=== PATIENT | male | born 1995 | race Caucasian/White ===

== ENCOUNTER 2018-06-02 15:24 | Emergency (ER) | payer OTHER, SELFPAY ==
[2018-06-02 15:29] VITALS: BP 139/89; PULSE 88; RESP 20; TEMP 36.6; O2SAT 95
--- NOTE | 2018-06-02 15:33 | W.ED.GENAD ---
Discharge Plan Disposition Patient Disposition: HOME Condition: Fair Discharge Details Chief Complaint: Anxiety Clinical Impression: Finger laceration Primary Care Provider: None,None ED Provider: Ivet Linton Home Meds and New Rx's Prescriptions: No Action No Known Home Meds RF: 0 Discharge Instructions Instructions: Finger Laceration (ED) Additional Instructions: Keep wound clean, dry, covered. Please continue with the foam and metal splint until stitches are removed next week. Return to the emergency department in 7 days for suture removal. Please monitor for signs of infection including redness, warmth, drainage, increased pain, fever/chills. If these arise please seek care urgently once again. Keep current dressing on for the next 24 hours, please cover with Band-Aid and foam and metal after this. Discharge Data Discharge Date/Time-TO BE ENTERED AT DEPARTURE: 06/02/18 17:37 Medical Decision Making Patient 22-year-old [id number] male presenting today with chief complaint of left index finger laceration. 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 Suffered a irregularly-shaped 1.5 cm laceration on the dorsal side over the PIP joint of the left index. Sensation is intact. Two-point is intact. Ligamentously intact on exam. Status is not up-to-date on tetanus, will update this today. Patient and I discussed the risk/benefits of closure as well as closure options. We discussed versus benefits of suture and expected procedural steps. He voices understanding and wishes to proceed peer Procedure note: Using standard sterile technique, a digital block was performed using 1% lidocaine plain. 4 cc was infiltrated. Patient tolerated this well. This is not sufficiently anesthetized the area. Another 3 cc of 1% lidocaine plain was infiltrated into the wound. This for quite well and tolerated patient tolerated this well. The wound was then copiously irrigated with chlorhexidine and sterile saline. Explored to base in a bloodless field using tourniquet. No foreign body or debris was noted. Unable to visualize tendon. Attention was then turned to closure. #6 simple interrupted stitches were placed using 5-0 nylon. Patient tolerated this well. A bulky sterile dressing was then applied which immobilized the PIP joint. Patient I discussed wound care in depth. He was given a foam metal splint to immobilize the area as this is directly over the DIP joint. We discussed signs and symptoms of infection and when to seek care urgently once again. I advised he return in 10 days for suture removal. Discussed wound care. All of his questions and concerns were addressed, he is in agreement with this plan. HPI General Mode of arrival: ambulatory. Date/Time Provider Initiated Documentation: 06/02/18 15:33. Limitations to Documentation: no limitations. Information obtained by: patient and RN notes reviewed. History of Present Illness 22 year old M presents to the emergency department with the chief complaint of left index finger laceration, described as mild, with intensity rated at 1. Quality is described as aching, and is localized to the left and upper extremity. Patient reports no radiation. Patient started experiencing this minute(s) and it has been constant. No relieving factors improve symptom(s), Movement worsens symptoms . Patient notes no other symptoms.. Patient did receive the following treatments prior to arrival, none Related Data Home Medications Medication Instructions Recorded Confirmed Unknown [No Known Home Meds] 04/25/15 06/02/18 Allergies Allergy/AdvReac Type Severity Reaction Status Date / Time No Known Allergies Allergy Unverified 06/02/18 15:32 General Stated Complaint: Laceration MCKENZIE: 3 Review of Systems Constitutional Reports as per HPI, Denies chills and Denies fever(s) Musculoskeletal Reports as per HPI Integumentary/Breasts Reports as per HPI Neurologic Reports as per HPI, Denies sensory deficit and Denies paresthesias [facility] Medical History Angina pectoris (Chronic) Anxiety (Chronic) Pulmonary embolism (Chronic) Surgical History History of coronary artery stent placement (Chronic) Social History Smoking/Tobacco Use Status: Current every day Tobacco Type: cigarettes Smoking cigarettes per day: 10 Alcohol Intake: current Alcohol Intake frequency: a few times a month Drug use: Never Substance use type: does not use Do you feel safe at home: Yes Do you feel safe in your relationship?: Yes Exam Const General: cooperative, healthy appearing, comfortable, no acute distress and well developed Nutritional Appearance: average body habitus and well nourished Orientation: alert and awake Resp Effort & Inspection: normal respiratory effort, able to speak in complete sentences and no respiratory distress Cardio Rate: regular rate Rhythm: regular rhythm Skin Trauma: laceration (dorsal PIP joint left index finger) Neuro General: alert and awake Cognition: normal cognition Speech: speech normal Gait: normal gait Sensory Exam: no sensory deficits noted (2 point intact on affect digit) Extrem Left upper extremity: full ROM and normal capillary refill; abnormal to inspection (laceration as above. Ligamentous intact) Psych Appearance: grossly normal and well kempt Mental Status: mental status grossly normal Speech and Movement: speech and movement normal Course Vital Signs Temperature 36.6 C 06/02/18 15:29 Pulse 88 06/02/18 15:29 Respiratory Rate 20 06/02/18 15:29 Blood Pressure 139/89 06/02/18 15:29 Pulse Oximetry 95 06/02/18 15:29 Temperature 36.6 C 06/02/18 15:29 Temperature Source Temporal Artery Scan 06/02/18 15:29 Pulse 88 06/02/18 15:29 Respiratory Rate 20 06/02/18 15:29 Respiratory Effort Non-Labored 06/02/18 15:29 Blood Pressure 139/89 06/02/18 15:29 Pulse Oximetry 95 06/02/18 15:29 Pain Level 0 06/02/18 15:29
--- NOTE | 2018-06-02 16:30 | ED.GENADUL_ITS ---
Discharge Plan Disposition Patient Disposition: HOME Condition: Fair Discharge Details Chief Complaint: Anxiety Clinical Impression: Finger laceration Primary Care Provider: None,None ED Provider: Ivet Linton Home Meds and New Rx's Prescriptions: No Action No Known Home Meds RF: 0 Discharge Instructions Instructions: Finger Laceration (ED) Additional Instructions: Keep wound clean, dry, covered. Please continue with the foam and metal splint until stitches are removed next week. Return to the emergency department in 7 days for suture removal. Please monitor for signs of infection including redness, warmth, drainage, increased pain, fever/chills. If these arise please seek care urgently once again. Keep current dressing on for the next 24 hours, please cover with Band-Aid and foam and metal after this. Discharge Data Discharge Date/Time-TO BE ENTERED AT DEPARTURE: 06/02/18 17:37 Medical Decision Making Patient 22-year-old [id number] male presenting today with chief complaint of left index finger laceration. 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 Suffered a irregularly-shaped 1.5 cm laceration on the dorsal side over the PIP joint of the left index. Sensation is intact. Two-point is intact. Ligamentously intact on exam. Status is not up-to-date on tetanus, will update this today. Patient and I discussed the risk/benefits of closure as well as closure options. We discussed versus benefits of suture and expected procedural steps. He voices understanding and wishes to proceed peer Procedure note: Using standard sterile technique, a digital block was performed using 1% lidocaine plain. 4 cc was infiltrated. Patient tolerated this well. This is not sufficiently anesthetized the area. Another 3 cc of 1% lidocaine plain was infiltrated into the wound. This for quite well and tolerated patient tolerated this well. The wound was then copiously irrigated with chlorhexidine and sterile saline. Explored to base in a bloodless field using tourniquet. No foreign body or debris was noted. Unable to visualize tendon. Attention was then turned to closure. #6 simple interrupted stitches were placed using 5-0 nylon. Patient tolerated this well. A bulky sterile dressing was then applied which immobilized the PIP joint. Patient I discussed wound care in depth. He was given a foam metal splint to immobilize the area as this is directly over the DIP joint. We discussed signs and symptoms of infection and when to seek care urgently once again. I advised he return in 10 days for suture removal. Discussed wound care. All of his questions and concerns were addressed, he is in agreement with this plan. HPI General Mode of arrival: ambulatory . Date/Time Provider Initiated Documentation: 06/02/18 15:33 . Limitations to Documentation: no limitations . Information obtained by: patient and RN notes reviewed . History of Present Illness 22 year old M presents to the emergency department with the chief complaint of left index finger laceration, described as mild, with intensity rated at 1. Quality is described as aching, and is localized to the left and upper extremity. Patient reports no radiation. Patient started experiencing this minute(s) and it has been constant. No relieving factors improve symptom(s), Movement worsens symptoms . Patient notes no other symptoms.. Patient did receive the following treatments prior to arrival, none Related Data Home Medications Medication Instructions Recorded Confirmed Unknown [No Known Home Meds] 04/25/15 06/02/18 Allergies Allergy/AdvReac Type Severity Reaction Status Date / Time No Known Allergies Allergy Unverified 06/02/18 15:32 General Stated Complaint: Laceration MCKENZIE: 3 Review of Systems Constitutional Reports as per HPI, Denies chills and Denies fever(s) Musculoskeletal Reports as per HPI Integumentary/Breasts Reports as per HPI Neurologic Reports as per HPI, Denies sensory deficit and Denies paresthesias [facility] Medical History Angina pectoris (Chronic) Anxiety (Chronic) Pulmonary embolism (Chronic) Surgical History History of coronary artery stent placement (Chronic) Social History Smoking/Tobacco Use Status: Current every day Tobacco Type: cigarettes Smoking cigarettes per day: 10 Alcohol Intake: current Alcohol Intake frequency: a few times a month Drug use: Never Substance use type: does not use Do you feel safe at home: Yes Do you feel safe in your relationship?: Yes Exam Const General: cooperative, healthy appearing, comfortable, no acute distress and well developed Nutritional Appearance: average body habitus and well nourished Orientation: alert and awake Resp Effort & Inspection: normal respiratory effort, able to speak in complete sentences and no respiratory distress Cardio Rate: regular rate Rhythm: regular rhythm Skin Trauma: laceration (dorsal PIP joint left index finger) Neuro General: alert and awake Cognition: normal cognition Speech: speech normal Gait: normal gait Sensory Exam: no sensory deficits noted (2 point intact on affect digit) Extrem Left upper extremity: full ROM and normal capillary refill; abnormal to inspection (laceration as above. Ligamentous intact) Psych Appearance: grossly normal and well kempt Mental Status: mental status grossly normal Speech and Movement: speech and movement normal Course Vital Signs Temperature 36.6 C 06/02/18 15:29 Pulse 88 06/02/18 15:29 Respiratory Rate 20 06/02/18 15:29 Blood Pressure 139/89 06/02/18 15:29 Pulse Oximetry 95 06/02/18 15:29 Temperature 36.6 C 06/02/18 15:29 Temperature Source Temporal Artery Scan 06/02/18 15:29 Pulse 88 06/02/18 15:29 Respiratory Rate 20 06/02/18 15:29 Respiratory Effort Non-Labored 06/02/18 15:29 Blood Pressure 139/89 06/02/18 15:29 Pulse Oximetry 95 06/02/18 15:29 Pain Level 0 06/02/18 15:29
[2018-06-02 17:36] VITALS: BP 139/89; PULSE 88; RESP 20; TEMP 36.6; O2SAT 95
[2018-06-02 19:55] VITALS: BP 149/78; PULSE 86; RESP 20; TEMP 36.9; O2SAT 97
== END 2018-06-02 17:37 | disposition home or self-care (01) ==
PROVIDERS: Emergency Provider Physician Assistant
DX: S61.211A Laceration without foreign body of left index finger without damage to nail, initial encounter (principal); W45.8XXA Other foreign body or object entering through skin, initial encounter
CPT/HCPCS: 12001

== ENCOUNTER 2018-06-09 06:27 | Emergency (ER) | payer SELFPAY ==
--- NOTE | 2018-06-09 06:38 | ED.GENADUL_ITS ---
Discharge Plan Disposition Patient Disposition: HOME Condition: Improving Discharge Details Chief Complaint: SutureRem Clinical Impression: Visit for suture removal Primary Care Provider: None,None ED Provider: Javid Ferrara Home Meds and New Rx's Prescriptions: No Action No Known Home Meds RF: 0 Medical Decision Making 22-year-old male presents from home for suture removal from laceration left index finger. Sutures removed by nursing staff. HPI General Mode of arrival: ambulatory . Date/Time Provider Initiated Documentation: 06/09/18 06:36 . Limitations to Documentation: no limitations . Information obtained by: patient . History of Present Illness 22 year old M presents to the emergency department with the chief complaint of Presents for suture removal, no complaints, wound healing well, and is localized to the left and upper extremity. Patient started experiencing this day(s) Patient notes no other symptoms.. Patient did receive the following treatments prior to arrival, none Related Data Home Medications Medication Instructions Recorded Confirmed Unknown [No Known Home Meds] 04/25/15 06/09/18 Allergies Allergy/AdvReac Type Severity Reaction Status Date / Time No Known Allergies Allergy Unverified 06/09/18 06:31 General Stated Complaint: SutureRem MCKENZIE: 5 PFSH Medical History Angina pectoris (Chronic) Anxiety (Chronic) Pulmonary embolism (Chronic) Surgical History History of coronary artery stent placement (Chronic) Social History Smoking/Tobacco Use Status: Current every day Tobacco Type: cigarettes Alcohol Intake: current Alcohol Intake frequency: a few times a month Drug use: Never Substance use type: does not use Do you feel safe at home: Yes Do you feel safe in your relationship?: Yes Exam Narrative Exam Narrative: GEN: awake, alert, oriented 3. Pleasant, well groomed, interactive. HEAD: Normocephalic, atraumatic ENT: Mucous membranes moist, oropharynx unremarkable, External ear exam unremarkable EYES: PERRL, EOMI EXT: Full ROM, no edema, no rash. Healing laceration left index finger, no erythema, discharge, swelling or tenderness Neuro: Grossly normal neurologic exam, conversant, interactive. Psych: Speech fluent, thoughts congruent, affect normal Course Respiratory Effort Non-Labored 06/09/18 06:31
== END 2018-06-09 06:44 | disposition home or self-care (01) ==
LOC: ER 06:41
PROVIDERS: Emergency Provider Emergency Medicine
DX: S61.211D Laceration without foreign body of left index finger without damage to nail, subsequent encounter (principal); X58.XXXD Exposure to other specified factors, subsequent encounter; Z48.02 Encounter for removal of sutures

== ENCOUNTER 2022-10-31 17:29 | Outpatient (REF) | payer MEDICAID, SELFPAY ==
[2022-10-31 16:20] LABS: ALT 67 U/L (16-63); AST 23 U/L (15-37); Albumin 4.7 g/dL (3.4-5.0); Alkaline Phosphatase 109 U/L (46-116); Anion Gap 9.3 mmol/L (3-11); BUN 16 mg/dL (7-18); Bilirubin, Total 0.7 mg/dL (0.2-1.0); CO2 27.7 mmol/L (21.0-32.0); Calculated LDL 133 mg/dL (<100); Chloride 101 mmol/L (98-107); Cholesterol 207 mg/dL (<200); Estimated GFR 104.48 (mL/min/1.73m2); Glucose 96 mg/dL (74-106); HDL Cholesterol 44 mg/dL (40-60); Potassium 4.5 mmol/L (3.5-5.1); Sodium 138 mmol/L (136-145); TSH (W/Ref FT4) 1.92 uIU/mL (0.36-3.74); Total Protein 8.3 g/dL (6.4-8.2); Triglyceride 153 mg/dL (<150)
== END 2022-10-31 17:30 | disposition home or self-care (01) ==
LOC: NCHCN 17:29
PROVIDERS: Visit Provider Family Medicine
DX: Z13.29 Encounter for screening for other suspected endocrine disorder (principal); Z13.228 Encounter for screening for other metabolic disorders; Z13.220 Encounter for screening for lipoid disorders; Z00.00 Encounter for general adult medical examination without abnormal findings
CPT/HCPCS: 80053; 80061; 84443

== ENCOUNTER 2023-06-23 16:02 | Emergency (ER) | payer SELFPAY ==
[2023-06-23 16:03] VITALS: BP 165/101; PULSE 83; RESP 18; TEMP 36.4; O2SAT 99
--- NOTE | 2023-06-23 16:17 | ED.GENADUL_ITS ---
Discharge Plan Disposition Patient Disposition: Home Condition: Stable Discharge Details Chief Complaint: Laceration Clinical Impression: Laceration of hand, left Primary Care Provider: Unknown,Unknown ED Provider: Ab Reis Home Meds and New Rx's Prescriptions: No Action No Known Home Meds Discharge Instructions Instructions: Laceration (ED) Additional Instructions: Return in 7 to 10 days for evaluation for suture removal Return sooner if signs of infection develop such as spreading redness from the wound or yellow-white discharge from the wound. HPI General Mode of arrival: ambulatory . Date/Time Provider Initiated Documentation: 06/23/23 16:07 . Limitations to Documentation: no limitations . Information obtained by: patient . History of Present Illness 28 year old M presents to the emergency department with the chief complaint of left hand laceration, described as moderate, Quality is described as aching, Patient started experiencing this hour(s) (1) and it has been constant. No relieving factors improve symptom(s), No exacerbating factors reported . Patient notes no other symptoms.. Related Data Home Medications Medication Instructions Recorded Confirmed Unknown [No Known Home Meds] 04/25/15 06/23/23 Allergies Allergy/AdvReac Type Severity Reaction Status Date / Time No Known Allergies Allergy Unverified 06/23/23 16:06 General Stated Complaint: Laceration MCKENZIE: 4 Review of Systems All systems reviewed & are unremarkable except as noted in HPI and below Constitutional Constitutional: Denies chills, Denies fever(s) and Denies weakness Cardiovascular Cardiovascular: Denies chest pain and Denies dyspnea Respiratory Respiratory: Denies cough and Denies dyspnea Gastrointestinal Gastrointestinal: Denies abdominal pain, Denies nausea and Denies vomiting Musculoskeletal Musculoskeletal: Denies joint swelling Neurologic Neurologic: Denies weakness Exam Const General: no acute distress Orientation: alert [facility] Head: normal to inspection Ears: external ears normal General nose exam: external nose normal Mouth: moist mucous membranes Eyes General: appearance normal, both eyes and all related structures Neck Neck: normal visual inspection Resp Effort & Inspection: normal respiratory effort and able to speak in complete sentences Cardio Rate: regular rate Skin General skin exam: no rashes or lesions noted Neuro General: patient alert and patient oriented x3 Extrem General: full ROM and capillary refill normal Psych Mental Status: mental status grossly normal Course Vital Signs Vital signs: Vital Signs Temperature 36.4 C L 06/23/23 16:03 Pulse 83 06/23/23 16:03 Respiratory Rate 18 06/23/23 16:03 Blood Pressure 165/101 H 06/23/23 16:03 Pulse Oximetry 99 06/23/23 16:03 Temperature 36.4 C L 06/23/23 16:03 Temperature Source Skin 06/23/23 16:03 Pulse 83 06/23/23 16:03 Respiratory Rate 18 06/23/23 16:03 Respiratory Effort Normal 06/23/23 16:16 Blood Pressure 165/101 H 06/23/23 16:03 Pulse Oximetry 99 06/23/23 16:03 Oxygen Delivery Method Room Air 06/23/23 16:03 Oxygen Flow Rate 0 06/23/23 16:03 Pain Level 6 06/23/23 16:03 Procedures Laceration Laceration 1: Site: hand Side (If applicable): left Size (cm): 4 Description: linear Depth: simple, single layer Local Anesthetic: Lidocaine 1% and with Epi Amount of anesthesia used (mL): 7 Pre-repair: wound explored and irrigated extensively Skin layer closed with: nylon Size (cm): 4-0 Number of sutures: 5 Technique: simple, interrupted Medical Decision Making 1-year-old male who denies any significant chronic medical problems comes in with a left hand laceration. He says he was working with a razor when it slipped and cut his posterior left hand, did not fall or sustain other injuries. He has a 4 cm laceration on the posterior left hand just proximal to the MCP joints of the index and middle finger and runs horizontal. He has intact sensation, intact to point discrimination, normal capillary refill, full range of motion with extension and flexion at all joints of the fingers. No findings on exam to suggest neurovascular or tendon injury. Will place topical lidocaine and update tetanus and closed with sutures. After copious irrigation wound was closed with five 4-0 sutures without complication, patient is stable for discharge advised to come back in 7 to 10 days for suture removal and sooner if signs of infection develop Differential Diagnosis Differential Diagnosis: Laceration, abrasion Quality:SDOH Health Related Social Needs: No Data to Display PFSH All Active Problems (Updated 06/23/23 @ 16:45 by Ab Reis MD) Laceration of hand, left (Acute) Medical History (Updated 06/23/23 @ 16:45 by Ab Reis MD) Pulmonary embolism Angina pectoris Anxiety Surgical History History of coronary artery stent placement Social History Smoking/Tobacco Use Status: Current every day Tobacco Type: cigarettes Smoking risk assessment performed?: Yes Alcohol Intake: current Alcohol Intake frequency: a few times a month Drug use: Never Substance use type: does not use Housing: house Do you feel safe at home: Yes Do you feel safe in your relationship?: Yes
[2023-06-23] MEDS: Tetanus & Diphtheria Tox,ADULT 0.5 ML VIAL IM (16:22)
== END 2023-06-23 17:00 | disposition home or self-care (01) ==
PROVIDERS: Emergency Provider Emergency Medicine
DX: S61.412A Laceration without foreign body of left hand, initial encounter (principal); I25.119 Atherosclerotic heart disease of native coronary artery with unspecified angina pectoris; Z86.711 Personal history of pulmonary embolism; Z95.5 Presence of coronary angioplasty implant and graft; F17.210 Nicotine dependence, cigarettes, uncomplicated; Z23 Encounter for immunization; W45.8XXA Other foreign body or object entering through skin, initial encounter
CPT/HCPCS: 12002; 90471; 90714; 99283

== ENCOUNTER 2023-07-01 18:56 | Emergency (ER) | payer BC, SELFPAY ==
[2023-07-01 18:58] VITALS: BP 149/80; PULSE 90; RESP 15; TEMP 36.9; O2SAT 98
--- NOTE | 2023-07-01 19:04 | W.ED.GENAD ---
Discharge Plan Disposition Patient Disposition: Home Condition: Stable Discharge Details Clinical Impression: Encounter for removal of sutures Primary Care Provider: None,None ED Provider: Ludmila Ramirez Home Meds and New Rx's Prescriptions: No Action No Known Home Meds Discharge Instructions Instructions: Stitches Removal (ED) Additional Instructions: Keep steri strips on there until they fall off on their own for the next few days. HPI General Mode of arrival: ambulatory. Date/Time Provider Initiated Documentation: 07/01/23 19:02. Limitations to Documentation: no limitations. Information obtained by: patient, RN notes reviewed and old records reviewed. HPI Narrative: 28-year-old male presents for suture removal to left hand. Patient had 5 simple interrupted sutures placed approximately 8 days ago after excellently cutting his hand with a razor. No signs of induration or infection noted patient has full range of motion noted to his hand. Related Data Home Medications Medication Instructions Recorded Confirmed Unknown [No Known Home Meds] 04/25/15 06/23/23 Allergies Allergy/AdvReac Type Severity Reaction Status Date / Time No Known Allergies Allergy Unverified 06/23/23 16:06 General Stated Complaint: Recheck MCKENZIE: 5 Review of Systems Integumentary/Breasts Skin/Breast: Reports as per HPI and Reports other (Sutured wound left hand) Exam Skin Wounds: wounds noted (Left hand sutured wound, well approximated, no surrounding signs of infecti) Course Vital Signs Vital signs: Vital Signs Temperature 36.9 C 07/01/23 18:58 Pulse 90 07/01/23 18:58 Respiratory Rate 15 07/01/23 18:58 Blood Pressure 149/80 H 07/01/23 18:58 Pulse Oximetry 98 07/01/23 18:58 Temperature 36.9 C 07/01/23 18:58 Temperature Source Tympanic 07/01/23 18:58 Pulse 90 07/01/23 18:58 Respiratory Rate 15 07/01/23 18:58 Respiratory Effort Normal 07/01/23 19:01 Blood Pressure 149/80 H 07/01/23 18:58 Blood Pressure Position Sitting 07/01/23 18:58 Pulse Oximetry 98 07/01/23 18:58 Oxygen Delivery Method Nasal Cannula 07/01/23 18:58 Medical Decision Making 28-year-old male presents for suture removal to left hand. Patient had 5 simple interrupted sutures placed approximately 8 days ago after excellently cutting his hand with a razor. No signs of induration or infection noted patient has full range of motion noted to his hand. Ordered sutures removed. staff development nurse at bedside for suture removal. Will place 2 steri strips on after removal for next few days to prevent dehiscence. This text was generated using [employer] system, please disregard any oddities of phrase or misspellings. Medical Records Medical records reviewed: Yes I reviewed the patient's medical records. Quality:SDOH Health Related Social Needs: No Data to Display PFSH All Active Problems Encounter for removal of sutures (Acute) Laceration of hand, left (Acute) Medical History Pulmonary embolism Angina pectoris Anxiety Surgical History History of coronary artery stent placement Social History Smoking/Tobacco Use Status: Current every day Tobacco Type: cigarettes Smoking risk assessment performed?: Yes Alcohol Intake: current Alcohol Intake frequency: a few times a month Drug use: Never Substance use type: does not use Housing: house Do you feel safe at home: Yes Do you feel safe in your relationship?: Yes PAWSS Have you Been Recently Intoxicated or Drunk Within the Last 30 days?: No Have you Ever Experienced Previous Episodes of Alcohol Withdrawal?: No Have you ever Experienced Withdrawal Seizures?: No Have you ever Experienced Delirium Tremens(DT)s?: No Have you ever undergone Alcohol Rehabilitation Treatment (i.e, inpt ot outpatient treatment programs)?: No Have you ever Experienced Blackouts?: No Have you ever Combined Alcohol with other Downers within the last 90 days?: No Have you ever Combined Alcohol with any other Substance of Abuse during the last 90 days?: No Positive Blood Alcohol level on Presentation? [PCS.BAL]: No Evidence of Increased Autonomic Activity (i.e. HR>120, tremor, sweating, agitation, nausea)?: No Result: 0
== END 2023-07-01 19:10 | disposition home or self-care (01) ==
PROVIDERS: Emergency Provider Registered Nurse Emergency
DX: Z48.02 Encounter for removal of sutures (principal)

== ENCOUNTER 2023-12-20 14:39 | Emergency (ER) | payer BC, SELFPAY ==
[2023-12-20] VITALS (21 sets, daily range): BP systolic 108–165; BP diastolic 58–120; PULSE 77–114; RESP 11–26; TEMP 36.4–36.9; O2SAT 96–99
--- NOTE | 2023-12-20 14:45 | DI.RAD_ITS ---
Exam(s) XR HIP LT COMPLETE AP PELVIS EXAM: XR HIP LT COMPLETE AP PELVIS CLINICAL HISTORY: Left pelvis injury. TECHNIQUE: 2D digital imaging was performed of the left hip. Three views were obtained. AP pelvis and lateral left hip views were obtained. COMPARISON: No exams were available for comparison FINDINGS: BONES: No acute fracture is present. No bony destructive lesion is seen. JOINTS: No dislocation present. SOFT TISSUE: Normal. IMPRESSION: Unremarkable radiographs of the left hip. Unremarkable radiographs of the pelvis DATA REPOSITORY: RADIATION DOSE DELIVERED:
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
--- OUTSIDE RECORDS SUMMARY | 2023-12-20 14:48 | XMS_ITS | Encounter Summary ---
Author Organization [facility] Address [address] [place] [address] Care Team Providers Care Thread Winder Name Role Phone Jose Ramon Prado MD Primary Care Provider Amelia loving Reason for Visit * Reason Onset Date Comments Appointment Related 01/22/2016 Encounter Details Date Type Department Care Team (Late st Contact Info) Description 01/22/2016 Telephone [facility] Neurosurgery - [facility] [address] [place], [place] [id number] Edu Moran, ALEXANDER Appointment Related Social History Tobacco Use Types Packs/Day Years Used Date Smoking Tobacco: Never Smokeless Tobacco: Former Chew Quit: 12/15/2015 Alcohol Use Standard Drinks/Week Comments Yes 14 (1 standard drink = 0.6 oz pu re alcohol) Sex and Gender Information Value Date Recorded Sex Assigned at Not on file Gender Identity Not on file Sexual Orientation Not on file documented as of this encounter Functional Status Functional Status Response Date of Assess ment Are you deaf or do you have serious difficulty h earing? No 12/16/2015 Are you blind or do you have serious difficulty seeing, even when wearing glasses? No 12/16/2015 Do you have serious difficul ty walking or climbing stairs? (5 years old or older) No 12/16/2015 Do you have difficulty dress ing or bathing? (5 years old or older) No 12/16/2015 Because of a physical, menta l, or emotional condition, does this person have difficulty doing errands alone such as visiting a doctor's office or shopping? Yes 01/11/2016 Cognitive Status Response Date of Assessm ent Because of a physical, menta l, or emotional condition, does this person have serious difficulty concentrating, remembering, or making decisions? Yes 01/11/2016 documented as of this encounter Miscellaneous Notes * Telephone Encounter - Edu Moran RN - 01/23/2016 0933 EST Left message for mother that message was recieved. Informed Sada Angulo, of mother's request of confidentiality and privacy regarding client. * Telephone Encounter - Ruth Gallo - 01/22/2016 1656 EST Mom, Silke, returned call on behalf of Silviano - she stated that we can speak to the CM (Sabi) butshe does not have their consent to sit in or be present at any of Silviano's appointments. * Telephone Encounter - Edu Moran RN - 01/22/2016 1131 EST Called client about upcoming appointment and CM who would like to sit in (Sabi). Left message for triage. documented in this encounter Plan of Treatment Not on file documented as of this encounter Visit Diagnoses Not on filedocumented in this encounter Care Teams Thread Winder Relationship Specialty Start Date End Date Jose Ramon Prado MD PCP - General 12/15/15 documented as of this encounter
--- OUTSIDE RECORDS SUMMARY | 2023-12-20 14:48 | XMS_ITS | Encounter Summary ---
Author Organization [facility] Address [address] [place] [address] Care Team Providers Care Commission Clerk Name Role Phone Jose Ramon Prado MD Primary Care Provider Amelia loving Reason for Referral * Radiology Services (Routine) - Specialty Report Received Specialty Diagnoses / Procedures Referred By Contac t Referred To Contact Diagnoses Closed skull fracture with cerebral contusion with routine healing, subsequent encounter Procedures CT HEAD WO CONTRAST Sada Benjamin PA-C [address] [place] [phone] Referral ID Status Reason Start Date Expiration Date V isits Requested Visits Authorized [id number] Specialty Report Received 06/09/2017 1 1 Encounter Details Date Type Department Care Team (Late st Contact Info) Description 06/05/2017 Orders Only [facility] Neurosurgery - [address] [id number] Sada Benjamin PA-C [address] [place] [phone] Closed skull fracture with cerebral contusion with routine healing, subsequent encounter (Primary Dx) Social History Tobacco Use Types Packs/Day Years [...] visiting a doctor's office or shopping? Yes 01/23/2016 Cognitive Status Response Date of Assessm ent Because of a physical, menta l, or emotional condition, does this person have serious difficulty concentrating, remembering, or making decisions? Yes 01/23/2016 documented as of this encounter Plan of Treatment Scheduled Orders Name Type Priority Associated Diagnoses Orde r Schedule CT HEAD WO CONTRAST Imaging Routine Closed Skull Fracture With Cerebral Contusion With Routine Healing, Subsequent Encounter Ordered: 06/09/2017 documented as of this encounter Visit Diagnoses Diagnosis Closed skull fracture with cerebral contusion with routine healing, subsequent encounter- Primary documented in this encounter Care Teams Commission Clerk Relationship Specialty Start Date End Date Jose Ramon Prado MD PCP - General 12/15/15 documented as of this encounter
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
--- OUTSIDE RECORDS SUMMARY | 2023-12-20 14:48 | XMS_ITS | Encounter Summary ---
Author Organization [facility] Address [address] [place] [address] Care Team Providers Care Printing Agent Name Role Phone Jose Ramon Prado MD Primary Care Provider Amelia loving Reason for Visit * Reason Onset Date Comments Appointment Related 06/30/2017 Encounter Details Date Type Department Care Team (Late st Contact Info) Description 06/30/2017 Telephone [facility] [address] [place], [place] [address] Sada Benjamin PA-C [address] [facility] [place] [phone] Appointment Related Social History Tobacco Use Types [...] visiting a doctor's office or shopping? Yes 06/26/2017 Cognitive Status Response Date of Assessm ent Because of a physical, menta l, or emotional condition, does this person have serious difficulty concentrating, remembering, or making decisions? Yes 06/26/2017 documented as of this encounter Miscellaneous Notes * Telephone Encounter - Ruth Manriquez - 06/30/2017 0953 EDT Confirmed for patient with the following appointment details: Date:07/01/2017 Arrival time:1:15 Appt time:1:30 Provider:KM Location:[facility] Advised patient to contact our office with any questions. The phone number and directions to the clinic were provided. documented in this encounter Plan of Treatment Not on file documented as of this encounter Visit Diagnoses Not on filedocumented in this encounter Care Teams Printing Agent Relationship Specialty Start Date End Date Jose Ramon Prado MD PCP - General 12/15/15 documented as of this encounter
--- OUTSIDE RECORDS SUMMARY | 2023-12-20 14:48 | XMS_ITS | Encounter Summary ---
Author Organization [facility] Address [address] [place] [address] Care Team Providers Care Senior Manufacturing Engineer Name Role Phone Jose Ramon Prado MD Primary Care Provider Amelia loving Reason for Referral * Radiology Services (Routine) - Closed Specialty Diagnoses / Procedures Referred By Contac t Referred To Contact Diagnoses Wrist fracture, left, with routine healing, subsequent encounter Procedures WRIST 2 VIEWS Logan Rogers PA-C [address] [place] [phone] Referral ID Status Reason Start Date Expiration Date Visits Re quested Visits Authorized [id number] Closed 08/22/2016 1 1 Encounter Details Date Type Department Care Team (Late st Contact Info) Description 08/21/2016 Orders Only [facility] Hand & Upper Extremity Program - [address] [place] [address] Logan Rogers PA-C [address] [place] [phone] Wrist fracture, left, with routine healing, subsequent encounter (Primary Dx) [...] as of this encounter Plan of Treatment Not on file documented as of this encounter Procedures Procedure Name Priority Date/Time Associated Diagnosis Comments WRIST 2 VIEWS Routine 08/22/2016 11:03 EDT Wrist fracture, left, with routine healing, subsequent encounter documented in this encounter Results * WRIST 2 VIEWS (08/22/2016 11:03 EDT) Anatomical Region Laterality Modality Other 08/22/2016 11:0 3 EDT 08/22/2016 12:00 EDT Narrative 08/22/2016 12:00 EDT WRIST 2 VIEWS 08/22/2016 11:03 AM Clinical History/Comments: 21 years Male S62.102D-Fracture of unspecified carpal bone, left wrist, subsequent encounter for fracture with routine [id number]; Distal Radius FX Comparison: 1. ??02/21/2016 Technique: 1. ??2 views right wrist: PA and lateral Findings/Impression: Distal radial internal fixation hardware is stable in position without loosening or failure. Ulnar styloid fracture is unchanged in appearance. Procedure Note Jesica Nicole MD - 08/22/2016 WRIST 2 VIEWS 08/22/2016 11:03 AM Clinical History/Comments: 21 years Male S62.102D-Fracture of unspecified carpal bone, left wrist, subsequent encounter for fracture with routine [id number]; Distal Radius FX Comparison: 1. 02/21/2016 Technique: 1. 2 views right wrist: PA and lateral Findings/Impression: Distal radial internal fixation hardware is stable in position without loosening or failure. Ulnar styloid fracture is unchanged in appearance. Logan Rogers PA-C IMG DIAGNOSTIC IMAGING ORDERABLES documented in this encounter Visit Diagnoses Diagnosis Wrist fracture, left, with routine healing, subsequent encounter- Primary documented in this encounter Care Teams Senior Manufacturing Engineer Relationship Specialty Start Date End Date Jose Ramon Prado MD PCP - General 12/15/15 documented as of this encounter
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
--- OUTSIDE RECORDS SUMMARY | 2023-12-20 14:48 | XMS_ITS | Encounter Summary ---
Author Organization [facility] Address [address] [place] [address] Care Team Providers Care Engine Emission Technician Name Role Phone Jose Ramon Prado MD Primary Care Provider Amelia loving Reason for Referral * Radiology Services (Routine) - Closed Specialty Diagnoses / Procedures Referred By Contac t Referred To Contact Diagnoses Wrist injury, right, initial encounter Procedures WRIST 2 VIEWS Fanta Munguia PA-C [address] [address] Referral ID Status Reason Start Date Expiration Date Visits Re quested Visits Authorized [id number] Closed 02/20/2016 1 1 Encounter Details Date Type Department Care Team (Late st Contact Info) Description 02/20/2016 Orders Only [facility] Hand & Upper Extremity Program - [address] [place], [place] [phone] Fanta Munguia PA-C [address] [phone] Wrist injury, right, initial encounter (Primary Dx) Social History Tobacco Use [...] Associated Diagnosis Comments WRIST 2 VIEWS Routine 02/21/2016 11:22 EST Wrist injury, right, initial encounter documented in this encounter Results * WRIST 2 VIEWS (02/21/2016 11:22 EST) Anatomical Region Laterality Modality Other 02/21/2016 11:2 2 EST 02/21/2016 15:15 EST Narrative 02/21/2016 15:15 EST EXAM TYPE: ??WRIST 2 VIEWS 02/21/2016 11:22 AM HISTORY S69.91XA-Unspecified injury of right wrist, hand and finger(s), initial [id number]; Right distal radius fracture follow up ?? COMPARISON January 23, 2016 TECHNIQUE Views of the right wrist include: ?? 2 views FINDINGS Internally fixed distal radial fracture in near-anatomic alignment and position with moderate to complete bridging callus, increased. Ulnar styloid process fracture in near-anatomic alignment and position, subacute, with very minimal callus bridging grossly unchanged. Severe joint space narrowing of the radiocarpal joint compatible with degenerative osteoarthritis. No bony or hardware complication is seen. IMPRESSION Subacute distal radial and ulnar fractures in grossly near-anatomic alignment and position. Procedure Note Lashon Duggan MD - 02/21/2016 EXAM TYPE: WRIST 2 VIEWS 02/21/2016 11:22 AM HISTORY S69.91XA-Unspecified injury of right wrist, hand and finger(s), initial [id number]; Right distal radius fracture follow up COMPARISON January 23, 2016 TECHNIQUE Views of the right wrist include: 2 views FINDINGS Internally fixed distal radial fracture in near-anatomic alignment and position with moderate to complete bridging callus, increased. Ulnar styloid process fracture in near-anatomic alignment and position, subacute, with very minimal callus bridging grossly unchanged. Severe joint space narrowing of the radiocarpal joint compatible with degenerative osteoarthritis. No bony or hardware complication is seen. IMPRESSION Subacute distal radial and ulnar fractures in grossly near-anatomic alignment and position. Fanta Munguia PA-C [facility] [place] [facility] ORDERABLES documented in this encounter Visit Diagnoses Diagnosis Wrist injury, right, initial encounter- Primary documented in this encounter Care Teams Engine Emission Technician Relationship Specialty Start Date End Date Jose Ramon Prado MD PCP - General 12/15/15 documented as of this encounter
--- OUTSIDE RECORDS SUMMARY | 2023-12-20 14:48 | XMS_ITS | Encounter Summary ---
Author Organization [facility] Address [address] [place] [address] Care Team Providers Care Leaf Blender Name Role Phone Jose Ramon Prado MD Primary Care Provider Amelia loving Encounter Details Date Type Department Care Team (Late st Contact Info) Description 01/23/2016 10:40 EST - 01/23/2016 23:59 EST Hospital Encounter [address] [address] Sada Benjamin PA-C [address] [facility], [facility] [address] [place] [phone] Discharge Disposition: Auto Discharge Social History Tobacco [...] a physical, menta l, or emotional condition, do you have difficulty doing errands alone such as visiting a doctor's office or shopping? (15 years old or older) No 12/16/2015 Cognitive Status Response Date of Assessm ent Because of a physical, menta l, or emotional condition, do you have serious difficulty concentrating, remembering, or making decisions? (5 years old or older) No 12/16/2015 documented as of this encounter Discharge Diagnoses Diagnosis S52.501D Unspecified fracture of the lower end of right radius, subsequent encounter for closed fracture with routine healing-S52.501D[ICD-10-CM] S02.0XXD Fracture of vault of skull, subsequent encounter for fracture with routine healing-S02.0XXD[ICD-10-CM] I62.9 Nontraumatic intracranial hemorrhage, unspecified-I62.9[ICD-10-CM] documented in this encounter Medications at Time of Discharge Medication Sig Dispensed Refills Start Date End Date acetaminophen (TYLENOL) 500 mg tablet Take 2 Tabs by mouth every 6 hours. 12/21/2015 docusate sodium (COLACE) 100 mg capsule Take 2 Caps by mouth 2 times daily. 12/21/2015 HYDROmorphone (DILAUDID) 2 mg tablet Take 1-2 Tabs by mouth every 4 hours as needed for Pain. Daily Max: 24 mg 45 Tab 12/21/2015 ibuprofen (MOTRIN) 400 mg tablet Take 1 Tab by mouth every 6 hours as needed for Pain. 60 Tab 12/21/2015 levETIRAcetam (KEPPRA) 500 mg tablet Take 1 Tab by mouth 2 times daily. 4 Tab 12/21/2015 LORazepam (ATIVAN) 0.5 mg tablet Take 1 Tab by mouth every 6 hours as needed for Anxiety. Daily Max: 2 mg 20 Tab 12/21/2015 ondansetron (ZOFRAN-ODT) 4 mg disintegrating tablet Take 1 Tab by mouth every 4 hours as needed for Nausea. 12 Tab 12/21/2015 prochlorperazine (COMPAZINE) 5 mg tablet Take 1 Tab by mouth every 6 hours as needed for Nausea. 10 Tab 12/21/2015 promethazine (PHENERGAN) 12.5 mg tablet Take 1 Tab by mouth every 6 hours as needed for Nausea. 10 Tab 12/21/2015 senna (SENOKOT) 8.6 mg tablet Take 2 Tabs by mouth 2 times daily. 12/21/2015 documented as of this encounter Discharge Disposition Disposition Code Departure Means Destination Auto Discharge Home documented in this encounter Plan of Treatment Not on file documented as of this encounter Visit Diagnoses Not on filedocumented in this encounter Care Teams Leaf Blender Relationship Specialty Start Date End Date Jose Ramon Prado MD PCP - General 12/15/15 documented as of this encounter
--- OUTSIDE RECORDS SUMMARY | 2023-12-20 14:48 | XMS_ITS | Encounter Summary ---
Author Organization [facility] Address [address] [place] [address] Care Team Providers Care Hatchery Helper Name Role Phone Jose Ramon Prado MD Primary Care Provider Amelia loving Reason for Visit * Reason Onset Date Comments Other 01/11/2016 Zoey will be co mario to today's appointment to speak w/MD; wanted to discuss w/nurse prior to coming. Encounter Details Date Type Department Care Team (Late st Contact Info) Description 01/11/2016 Telephone [facility] Acute Care Surgery - [facility] [address] [place], [place] [phone] Trauma, Nurse Other (Zoey will be coming to today's appointment to speak w/; wanted to discuss w/nurse prior to coming.) Social History Tobacco Use Types Packs/Day Years [...] encounter Miscellaneous Notes * Telephone Encounter - Lee Ann Uriostegui RN - 01/11/2016 1044 EST Phone call to Zoey Nurse [employer] Stock Blank Handler. She called to let us know she is coming to visit today. This is a workers comp case. She has been trying to help the family, however getting push back from mom. The family is aware she will be here. documented in this encounter Plan of Treatment Not on file documented as of this encounter Visit Diagnoses Not on filedocumented in this encounter Care Teams Hatchery Helper Relationship Specialty Start Date End Date Jose Ramon Prado MD PCP - General 12/15/15 documented as of this encounter
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
--- OUTSIDE RECORDS SUMMARY | 2023-12-20 14:48 | XMS_ITS | Encounter Summary ---
Author Organization [facility] Address [address] [place] [address] Care Team Providers Care Opto Mechanical Engineer Name Role Phone Jose Ramon Prado MD Primary Care Provider Amelia loving Encounter Details Date Type Department Care Team (Latest Contact Info) Description 01/01/2016 15:45 EST - 01/01/2016 23:59 EST Hospital Encounter [facility] - [address] [place] [address] Logan Rogers [place] [address] Discharge Disposition: Home or Self Care Social History Tobacco Use Types Packs/Day Years [...] as of this encounter Discharge Diagnoses Diagnosis M25.531 Pain in right wrist-M25.531[ICD-10-CM] documented in this encounter Medications at Time [...] Discharge Disposition Disposition Code Departure Means Destination Home or Self Half-Way documented in this encounter Plan of Treatment Not on file documented as of this encounter Visit Diagnoses Not on filedocumented in this encounter Care Teams Opto Mechanical Engineer Relationship Specialty Start Date End Date Jose Ramon Prado MD PCP - General 12/15/15 documented as of this encounter
--- OUTSIDE RECORDS SUMMARY | 2023-12-20 14:48 | XMS_ITS | Encounter Summary ---
Author Organization [facility] Address [address] [place] [address] Care Team Providers Care Executive Assistant To President Name Role Phone Jose Ramon Prado MD Primary Care Provider Amelia loving Encounter Details Date Type Department Care Team (Late st Contact Info) Description 06/26/2017 Results Only Imaging [facility] Neurosurgery - [facility] [address] [place], [place] [phone] Sada Benjamin PA-C [address] [facility], [address] [place] [address] Social History Tobacco Use Types Packs/Day Years [...] Yes 06/26/2017 documented as of this encounter Plan of Treatment Not on file documented as of this encounter Procedures Procedure Name Priority Date/Time Associated Diagnosis Comments CT HEAD WO CONTRAST 06/26/2017 1 3:59 EDT documented in this encounter Results * CT HEAD WO CONTRAST (06/26/2017 13:59 EDT) Anatomical Region Laterality Modality Other 06/26/2017 13:5 9 EDT 06/26/2017 14:44 EDT Narrative 06/26/2017 14:[address] HEAD WITHOUT CONTRAST HISTORY: Trauma follow-up. TECHNIQUE: CT head without contrast COMPARISON: Head CT 01/23/2016. FINDINGS: Previously seen intracranial hemorrhages are no longer apparent. The small focus of evolving encephalomalacia in the anterior right temporal lobe is unchanged. The frontal bone fracture demonstrates progression towards healing and is less apparent. There is no evidence of acute intracranial hemorrhage, large territorial infarct, or parenchymal mass lesion. The ventricles, cisterns, and sulci are normal in size and configuration. The bones and extracranial soft tissues are otherwise unremarkable. IMPRESSION: Frontal bone fracture demonstrates progression towards healing and is less apparent. Previously seen intracranial hemorrhages are no longer apparent. Procedure Note Jorge Luis Porter MD - 06/26/2017 CT HEAD WITHOUT CONTRAST HISTORY: Trauma follow-up. TECHNIQUE: CT head without contrast COMPARISON: Head CT 01/23/2016. FINDINGS: Previously seen intracranial hemorrhages are no longer apparent. The small focus of evolving encephalomalacia in the anterior right temporal lobe is unchanged. The frontal bone fracture demonstrates progression towards healing and is less apparent. There is no evidence of acute intracranial hemorrhage, large territorial infarct, or parenchymal mass lesion. The ventricles, cisterns, and sulci are normal in size and configuration. The bones and extracranial soft tissues are otherwise unremarkable. IMPRESSION: Frontal bone fracture demonstrates progression towards healing and is less apparent. Previously seen intracranial hemorrhages are no longer apparent. Sada Benjamin PA-C IMG CT MARGIE BENITO documented in this encounter Visit Diagnoses Not on filedocumented in this encounter Care Teams Executive Assistant To President Relationship Specialty Start Date End Date Jose Ramon Prado MD PCP - General 12/15/15 documented as of this encounter
--- OUTSIDE RECORDS SUMMARY | 2023-12-20 14:48 | XMS_ITS | Encounter Summary ---
Author Organization [facility] Address [address] [place] [address] Care Team Providers Care Sterile Preparation Technician Name Role Phone Jose Ramon Prado MD Primary Care Provider Amelia loving Encounter Details Date Type Department Care Team (Late st Contact Info) Description 06/26/2017 13:39 EDT - 06/26/2017 23:59 EDT Hospital Encounter [address] [address] Sada Benjamin PA-C [address] [facility], [facility] [address] [place] [phone] Discharge Disposition: Auto Discharge Social History Tobacco [...] Yes 01/23/2016 documented as of this encounter Discharge Diagnoses Diagnosis S02.0XXD Fracture of vault of skull, subsequent encounter for fracture with routine healing-S02.0XXD[ICD-10-CM] documented in this encounter Medications at Time [...] on filedocumented in this encounter Care Teams Sterile Preparation Technician Relationship Specialty Start Date End Date Jose Ramon Prado MD PCP - General 12/15/15 documented as of this encounter
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
--- OUTSIDE RECORDS SUMMARY | 2023-12-20 14:48 | XMS_ITS | Encounter Summary ---
Author Organization [facility] Address [address] [place] [address] Care Team Providers Care Mold Cooler Name Role Phone Jose Ramon Prado MD Primary Care Provider Amelia loving Reason for Referral * Radiology Services (Routine) - Closed Specialty Diagnoses / Procedures Referred By Contac t Referred To Contact Diagnoses Other closed fracture of distal end of right radius with routine healing, subsequent encounter Procedures WRIST 2 VIEWS Chip Hanna MD [address] [place] [phone] Referral ID Status Reason Start Date Expiration Date Visits Re quested Visits Authorized [id number] Closed 12/28/2015 1 1 Encounter Details Date Type Department Care Team (Late st Contact Info) Description 12/28/2015 Orders Only [facility] Hand & Upper Extremity Program - [address] [place] [address] Chip Hanna MD [address] [place] [phone] Other closed fracture of distal end of right radius with routine healing, subsequent encounter (Primary Dx) [...] No 12/16/2015 documented as of this encounter Plan of Treatment Not on file documented as of this encounter Procedures Procedure Name Priority Date/Time Associated Diagnosis Comments WRIST 2 VIEWS Routine 01/01/2016 15:27 EST Other closed fracture of distal end of right radius with routine healing, subsequent encounter documented in this encounter Results * WRIST 2 VIEWS (01/01/2016 15:27 EST) Anatomical Region Laterality Modality Other 01/01/2016 15:2 7 EST 01/01/2016 15:56 EST Narrative 01/01/2016 15:56 EST RIGHT WRIST 2 VIEWS 01/01/2016 3:27 PM CLINICAL HISTORY S52.591D-Other fractures of lower end of right radius, subsequent encounter for closed fracture with routine [id number]; Right distal radius fracture, 3-part ?? COMPARISON C-arm fluoroscopy images of the right wrist dated 12/19/2015, and plain films of the right wrist through a cast on December 15, 2015 TECHNIQUE 2 views of the right wrist were acquired. PA and lateral views. ?? FINDINGS No acute fracture, dislocation, or bone destruction. ? Status post ORIF of intra-articular distal right radius subacute fractures (with buttress plate-screw fixation) in grossly near-anatomic alignment and position, with mild new bone formation, and progression from the prior study, consistent with subacute fracture healing ??. No perihardware lucencies are identified. ??No hardware fracture is grossly evident. ??No hardware change in alignment or position compared with prior. ? Ulnar styloid process subacute fracture ??in grossly near-anatomic alignment and position, with mild new bone formation, and progression from the prior study, consistent with subacute fracture healing. ?? A longitudinally oriented intra-articular fracture through the volar aspect of the radiocarpal joint appears to be traversed by the most medial of the distal radial fixation screws, little if any bony union across this fracture line is seen on the lateral view, and little if any change from the prior study. This fracture line has mild 3.4 mm diastases, grossly unchanged. IMPRESSION Distal radius subacute fractures in grossly near-anatomic alignment and position, s/p ORIF as described above, without radiographic evidence of bony complication. ?? Subacute healing fracture of the ulnar styloid process. Ulna minus variant, unchanged from 12/19/2015. Procedure Note Lashon Duggan MD - 01/01/2016 RIGHT WRIST 2 VIEWS 01/01/2016 3:27 PM CLINICAL HISTORY S52.591D-Other fractures of lower end of right radius, subsequent encounter for closed fracture with routine [id number]; Right distal radius fracture, 3-part COMPARISON C-arm fluoroscopy images of the right wrist dated 12/19/2015, and plain films of the right wrist through a cast on December 15, 2015 TECHNIQUE 2 views of the right wrist were acquired. PA and lateral views. FINDINGS No acute fracture, dislocation, or bone destruction. Status post ORIF of intra-articular distal right radius subacute fractures (with buttress plate-screw fixation) in grossly near-anatomic alignment and position, with mild new bone formation, and progression from the prior study, consistent with subacute fracture healing . No perihardware lucencies are identified. No hardware fracture is grossly evident. No hardware change in alignment or position compared with prior. Ulnar styloid process subacute fracture in grossly near-anatomic alignment and position, with mild new bone formation, and progression from the prior study, consistent with subacute fracture healing. A longitudinally oriented intra-articular fracture through the volar aspect of the radiocarpal joint appears to be traversed by the most medial of the distal radial fixation screws, little if any bony union across this fracture line is seen on the lateral view, and little if any change from the prior study. This fracture line has mild 3.4 mm diastases, grossly unchanged. IMPRESSION Distal radius subacute fractures in grossly near-anatomic alignment and position, s/p ORIF as described above, without radiographic evidence of bony complication. Subacute healing fracture of the ulnar styloid process. Ulna minus variant, unchanged from 12/19/2015. Chip Hanna MD IMG DIAGNOSTIC IMAGI NG ORDERABLES documented in this encounter Visit Diagnoses Diagnosis Other closed fracture of distal end of right radius with routine healing, subsequent encounter- Primary documented in this encounter Care Teams Mold Cooler Relationship Specialty Start Date End Date Jose Ramon Prado MD PCP - General 12/15/15 documented as of this encounter
--- OUTSIDE RECORDS SUMMARY | 2023-12-20 14:48 | XMS_ITS | Encounter Summary ---
Author Organization [facility] Address [address] [place] [address] Care Team Providers Care Block Sealer Name Role Phone Jose Ramon Prado MD Primary Care Provider Amelia loving Reason for Visit * Reason Onset Date Comments Letter for School/Work 02/22/2016 work Encounter Details Date Type Department Care Team (Late st Contact Info) Description 02/22/2016 Telephone [facility] [address] [place], [place] [address] Sada Benjamin PA-C [address] [facility], [address] [place] [address] Letter for School/Work (work) Social History Tobacco Use Types Packs/Day Years [...] Yes 01/23/2016 documented as of this encounter Miscellaneous Notes * Telephone Encounter - Ning Robertson - 02/22/2016 0845 EST Reason for Call: Letter for School/Work (work) Summary/Symptoms: Patient's mother calling needing a letter stating that her son can return to work. She needs it dated from the 01/23/16 visit, and the fax number is [phone]. Ning Robertson 02/22/2016 8:45 documented in this encounter Plan of Treatment Not on file documented as of this encounter Visit Diagnoses Not on filedocumented in this encounter Care Teams Block Sealer Relationship Specialty Start Date End Date Jose Ramon Prado MD PCP - General 12/15/15 documented as of this encounter
--- OUTSIDE RECORDS SUMMARY | 2023-12-20 14:48 | XMS_ITS | Encounter Summary ---
Author Organization [facility] Address [address] [place] [address] Care Team Providers Care Linux Network Systems Administrator Name Role Phone Jose Ramon Prado MD Primary Care Provider Amelia loving Reason for Referral * Radiology Services (Routine) - Closed Specialty Diagnoses / Procedures Referred By Contac t Referred To Contact Diagnoses Right wrist pain Procedures WRIST 2 VIEWS Fanta Munguia PA-C [address] [address] Referral ID Status Reason Start Date Expiration Date Visits Re quested Visits Authorized [id number] Closed 01/23/2016 1 1 Encounter Details Date Type Department Care Team (Late st Contact Info) Description 01/18/2016 Orders Only [facility] Hand & Upper Extremity Program - [address] [place], [place] [phone] Fanta Munguia PA-C [address] [phone] Right wrist pain (Primary Dx) Social History Tobacco Use Types [...] Yes 01/11/2016 documented as of this encounter Plan of Treatment Not on file documented as of this encounter Procedures Procedure Name Priority Date/Time Associated Diagnosis Comments WRIST 2 VIEWS Routine 01/23/2016 15:13 EST Right wrist pain documented in this encounter Results * WRIST 2 VIEWS (01/23/2016 15:13 EST) Anatomical Region Laterality Modality Other 01/23/2016 15:1 3 EST 01/24/2016 16:29 EST Narrative 01/24/2016 16:29 EST RIGHT WRIST 2 VIEWS 01/23/2016 3:13 PM CLINICAL HISTORY M25.531-Pain in right [id number]; right distal radius fracture s/p ORIF 12/19/15 ?? COMPARISON January 11, 2016 TECHNIQUE 2 views of the right wrist were acquired. PA and lateral views. ?? FINDINGS No acute fracture, dislocation, or bone destruction. ? Distal radial intra-articular fracture internally fixed in near-anatomic alignment and position by buttress plate-screw fixation hardware, with mild new bone progression in the interim. Ununited ulnar styloid process fracture in near-anatomic alignment and position. 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 IMPRESSION Distal radial subacute fracture in grossly near-anatomic alignment and position, s/p ORIF as described above, without radiographic evidence of bony complication. ? Procedure Note Lashon Duggan MD - 01/24/2016 RIGHT WRIST 2 VIEWS 01/23/2016 3:13 PM CLINICAL HISTORY M25.531-Pain in right [id number]; right distal radius fracture s/p ORIF 12/19/15 COMPARISON January 11, 2016 TECHNIQUE 2 views of the right wrist were acquired. PA and lateral views. FINDINGS No acute fracture, dislocation, or bone destruction. Distal radial intra-articular fracture internally fixed in near-anatomic alignment and position by buttress plate-screw fixation hardware, with mild new bone progression in the interim. Ununited ulnar styloid process fracture in near-anatomic alignment and position. 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 IMPRESSION Distal radial subacute fracture in grossly near-anatomic alignment and position, s/p ORIF as described above, without radiographic evidence of bony complication. Fanta Munguia PA-C IMG DIAGNOST IC IMAGING ORDERABLES documented in this encounter Visit Diagnoses Diagnosis Right wrist pain- Primary Pain in joint, forearm documented in this encounter Care Teams Linux Network Systems Administrator Relationship Specialty Start Date End Date Jose Ramon Prado MD PCP - General 12/15/15 documented as of this encounter
--- OUTSIDE RECORDS SUMMARY | 2023-12-20 14:48 | XMS_ITS | Encounter Summary ---
Author Organization [facility] Address [address] [place] [address] Care Team Providers Care Assistant Front Desk Manager Name Role Phone Jose Ramon Prado MD Primary Care Provider Amelia loving Reason for Visit * Reason Comments Wrist Pain Right wrist follow u p Encounter Details Date Type Department Care Team (Late st Contact Info) Description 01/23/2016 15:30 EST Office Visit [facility] Hand & Upper Extremity Program - [address] [facility] [address] [place], [place] [phone] Fanta Munguia PA-C [address] [place] [phone] Forearm fractures, both bones, closed, right, with [...] intracranial hemorrhage, unspecified-I62.9[ICD-10-CM] documented in this encounter Discharge Disposition Disposition Code Departure Means Destination Auto Discharge documented in this encounter Progress Notes * Fnata Munguia - 01/23/2016 1530 EST PROBLEM: Right distal radius fracture PROCEDURE: ORIF right distal radius fracture on 12/19/[address] Hanna SUBJECTIVE: Silviano Trevizo is a 20 y.o. right hand dominant male who is here today for a post operative visit. They are now one month out from their surgery with Dr. Hanna. The patient is doing well, he has been going to hand therapy at [facility] in [place], and progressing his range of motion of his wrist. He is here for follow up xrays and a re-check. He has no complaints. He says the pain is a 1 out of 10 if that. He has not been weightbearing or lifting with the wrist and has been weaning out ofhis splint. He denies paraesthesias. He has not begun strengthening. OBJECTIVE: There were no vitals taken for this visit. On physical exam, the patient is found [...] full. He makes a full fist, hook medical billing manager. Range of motion of the wrist is between about 25 degrees of extension and 10 degrees flexion. Forearm rotation has improved with near full pronation, and minimal loss of supination. Passively, endpoints are soft. Radiographs taken of the wrist today reveal similar alignment to those taken several weeks ago. Intact hardware with no evidence of loosening or migration. Again seen is the fragment on the volar lipof the distal radius that is not captured by fixation, however it remains in the same location without movement and displays minimal interval healing, and even callus formation. Stable ulnar styloid fracture. The past medical, family and social history have been reviewed in the patient chart. History reviewed. No pertinent past medical history. Medications Prior to Today's Visit Medication Sig [...] every 6 hours as needed for Pain. (Patientnot taking: Reported on 01/23/2016) ??? levETIRAcetam (KEPPRA) 500 mg tablet Take [...] Hanna PLAN: The patient will return in 4 weeks for another set of radiographs to include AP and lateral views. It appears that the volar lip is stable, and so he will continue with therapy and progression.He will continue to use his splint. No weightbearing or lifting at this time with the wrist, but hecan progress with range of motion, and early strengthening, as well as some passive range of motionat this time. All questions were answered, the patient and his mother are happy with this plan. Dr. Henao was the attending physician available in the clinic today if needed. A consultation was not required. This note was prepared using voice recognition software and the EMR. There may be inadvertent errors and omissions. AJAY Celestin 01/23/2016 documented in this encounter Plan of Treatment Not on file documented as of this encounter Visit Diagnoses Diagnosis Forearm fractures, both bones, closed, right, with routine healing, subsequent encounter- Primary documented in this encounter Care Teams Assistant Front Desk Manager Relationship Specialty Start Date End Date Jose Ramon Prado MD PCP - General 12/15/15 documented as of this encounter
--- OUTSIDE RECORDS SUMMARY | 2023-12-20 14:48 | XMS_ITS | Encounter Summary ---
Author Organization [facility] Address [address] [place] [address] Care Team Providers Care Diesel Powerplant Mechanic Name Role Phone Jose Ramon Prado MD Primary Care Provider Amelia loving Reason for Visit * Reason Comments Wrist Pain Right distal radius follow up Encounter Details Date Type Department Care Team (Late st Contact Info) Description 02/21/2016 11:30 EST Office Visit [facility] Hand & Upper Extremity Program - [place] [facility] [address] [place], [place] [phone] Fanta Munguia PA-C [address] [place] [phone] Forearm fractures, both bones, closed, right, with [...] encounter for closed fracture with routine healing-S52.501D[ICD-10-CM] S52.611D Displaced fracture of right ulna styloid process, subsequent encounter for closed fracture with routine healing-S52.611D[ICD-10-CM] documented in this encounter Discharge Disposition Disposition Code Departure Means Destination Auto Discharge documented in this encounter Progress Notes * Fanta Munguia - 02/21/2016 1130 EST PROBLEM: Right distal radius fracture PROCEDURE: ORIF right distal radius fracture on 12/19/[address] Hanna SUBJECTIVE: Silviano Trevizo is a 20 y.o. right hand dominant male who is here today for a post operative visit. They are now 9 weeks out from their surgery with Dr. Hanna. The patient is doing well, he has been going to hand therapy at [facility] in [place], and progressing his range of motion of his wrist. He is here for follow up xrays and a re-check. He has no complaints. He says the pain is a 0 out of 10, only a stretch is felt with pushing or pulling movement. He has been strengthening. He deniesparaesthesias. He wants to return to work. OBJECTIVE: There were no vitals taken for [...] full. He makes a full fist, hook pharmacy coordinator. Range of motion of the wrist is between about 25 degrees of extension and 30 degrees flexion. Forearm rotation has improved with near full pronation, and minimal loss of supination. Passively, endpoints are soft. Drum Dyeing Machine Operator is weak bilaterally, 4-/5. Pinch strength improving, interosseous strength 4/5 on the right. Radiographs taken of the wrist today reveal similar alignment to those taken 4 weeks ago. Intact hardware with no evidence of loosening or migration. Again seen is the fragment on the volar lip of the distal radius that is not captured by fixation, however it remains in the same location without movement and displays good callus formation. Stable ulnar styloid fracture. The [...] Hanna PLAN: The patient will return in 6 monthsfor another set of radiographs to include AP and lateral views. It appears that the volar lip is stable, and so he will continue with therapy and progression.He can return to work at this time, with no restrictions, however he we need to take it easy initially, and slowly ramp into his full work. 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 He states that there is plan for him to do to fill a day, without doing any heavy lifting. He was very happy with this plan, all questions were answered, the patient and his mother are happy with this plan. He can come back in the meantime if there are any problems, I recommend that in 6 months if he has reached maximal medical improvement, I would suggest a permanency rating. Dr. Seay was the attending physician available in the clinic today if needed. A consultation wasnot required. This note was prepared using voice recognition software and the EMR. There may be inadvertent errors and omissions. AJAY Celestin 02/21/2016 documented in this encounter Plan of Treatment Not on file documented as of this encounter Visit Diagnoses Diagnosis Forearm fractures, both bones, closed, right, with routine healing, subsequent encounter- Primary documented in this encounter Care Teams Diesel Powerplant Mechanic Relationship Specialty Start Date End Date Jose Ramon Prado MD PCP - General 12/15/15 documented as of this encounter
--- OUTSIDE RECORDS SUMMARY | 2023-12-20 14:48 | XMS_ITS | Encounter Summary ---
Author Organization [facility] Address [address] [place] [address] Care Team Providers Care Manager User Experience Name Role Phone Jose Ramon Prado MD Primary Care Provider Amelia loving Reason for Visit * Reason Onset Date Comments Other 02/23/2016 Encounter Details Date Type Department Care Team (Late st Contact Info) Description 02/23/2016 Telephone [facility] Neurosurgery - [facility] [address] [place], [place] [address] Sada Benjamin PA-C [address] [facility], [address] [place] [address] Other Social History Tobacco Use Types Packs/Day Years [...] encounter Miscellaneous Notes * Telephone Encounter - Sada Benjamin PA - 02/26/2016 1206 EST I spoke with the patient's mother. He is ready to return to work. Letter written. * Telephone Encounter - Caitlin Barba - 02/23/2016 1439 EST Mom would like to speak with Sada Benjamin regarding when Silviano can go back to work. States that info they were given at January 2016 visit is different than what is noted in Sada's January 2016 note. Mom can be reached at [phone]. documented in this encounter Plan of Treatment Not on file documented as of this encounter Visit Diagnoses Not on filedocumented in this encounter Care Teams Manager User Experience Relationship Specialty Start Date End Date Jose Ramon Prado MD PCP - General 12/15/15 documented as of this encounter
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
--- OUTSIDE RECORDS SUMMARY | 2023-12-20 14:48 | XMS_ITS | Encounter Summary ---
Author Organization [facility] Address [address] [place] [address] Care Team Providers Care Principal Software Engineer Name Role Phone Jose Ramon Prado MD Primary Care Provider Amelia loving Reason for Visit * Reason Onset Date Comments Appointment Related 06/10/2017 Encounter Details Date Type Department Care Team (Late st Contact Info) Description 06/10/2017 Telephone [facility] Neurosurgery - [facility] [address], [place] [address] Sada Benjamin PA-C [address] [facility], [address] [place] [address] Appointment Related Social History Tobacco [...] encounter Miscellaneous Notes * Telephone Encounter - Sammie Mcgrath - 06/12/2017 1602 EDT Confirmed the following appointment details with Lety: ?? 06/26 - Iesha Roe Check in at 2:00pm at registration CT at 2:30pm ?? 07/01 - [facility] Appt at 1:30pm with Sada Benjamin, IZAIAH ?? Lety verbalized understanding and denied having any questions. Also confirmed appointment details with family service caseworker, Sabi. * Telephone Encounter - Reyna Saucedo - 06/10/2017 1352 EDT Lety called regarding the appointment for Silviano's CT scan.They are hoping to get it done on 06/26 as he will be here that day for another appointment. documented in this encounter Plan of Treatment Not on file documented as of this encounter Visit Diagnoses Not on filedocumented in this encounter Care Teams Principal Software Engineer Relationship Specialty Start Date End Date Jose Ramon Prado MD PCP - General 12/15/15 documented as of this encounter
--- OUTSIDE RECORDS SUMMARY | 2023-12-20 14:48 | XMS_ITS | Encounter Summary ---
Author Organization [facility] Address [address] [place] [address] Care Team Providers Care Laser Beam Color Scanner Operator Name Role Phone Jose Ramon rPado MD Primary Care Provider Amelia loving Reason for Visit * Reason Onset Date Comments Appointment Related 05/23/2017 Encounter Details Date Type Department Care Team (Late st Contact Info) Description 05/23/2017 Telephone [facility] Neurosurgery - [facility] [address] [place], [place] [id number] Bindu Monroy, ALEXANDER Appointment Related Social History Tobacco Use [...] Telephone Encounter - Sammie Mcgrath - 06/12/2017 1600 EDT See new encounter. * Telephone Encounter - Sammie Mcgrath - 06/05/2017 1512 EDT Left message for Silviano to return call about scheduling an appointment. Patient needs head CT and follow up with IZAIAH Lloyd. Where would patient like head CT done? * Telephone Encounter - Sammie Mcgrath - 06/02/2017 1409 EDT Left message for Sabi that Sada will see Silviano back with head CT to comment on skull fracture. Patient will be contacted directly with appointment details. * Telephone Encounter - Sammie Mcgrath - 05/29/2017 1615 EDT Work comp pillowcase sewer calling again to schedule appointment. Discussed that Silviano has not been seen since 01/2016 and there this needs to be discussed with AJAY Benjamin. * Telephone Encounter - Bindu Monroy RN - 05/23/2017 1149 EDT Work Comp pillowcase sewer calling to schedule and appointment for the purpose of documenting maximum medical improvement with regard to his skull fracture. He most recently saw Sadadeena Benjamin in January of 2016. She is looking to close the claim. documented in this encounter Plan of Treatment Not on file documented as of this encounter Visit Diagnoses Diagnosis Closed skull fracture with cerebral contusion with routine healing, subsequent encounter- Primary documented in this encounter Care Teams Laser Beam Color Scanner Operator Relationship Specialty Start Date End Date Jose Ramon Prado MD PCP - General 12/15/15 documented as of this encounter
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
--- OUTSIDE RECORDS SUMMARY | 2023-12-20 14:48 | XMS_ITS | Encounter Summary ---
Author Organization [facility] Address [address] [place] [address] Care Team Providers Care Pot Room Tapper Name Role Phone Jose Ramon Prado MD Primary Care Provider Amelia loving Reason for Visit * Reason Onset Date Comments Other 07/01/2017 Encounter Details Date Type Department Care Team (Late st Contact Info) Description 07/01/2017 Telephone [facility] Hand & Upper Extremity Program - [address] [address] Logan Rogers PA-C [address] [place] [address] Other Social History Tobacco Use Types Packs/Day [...] Yes 07/01/2017 documented as of this encounter Miscellaneous Notes * Telephone Encounter - Larissa Dotson - 07/01/2017 1617 EDT I spoke with Lashon on 07.01.17 and informed her that our providers do not do Permanent Impairment Disability Test. She said that she would inform the manager of case management so that they could determine what their next step would be. Larissa Dotson documented in this encounter Plan of Treatment Not on file documented as of this encounter Visit Diagnoses Not on filedocumented in this encounter Care Teams Pot Room Tapper Relationship Specialty Start Date End Date Jose Ramon Prado MD PCP - General 12/15/15 documented as of this encounter
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
--- OUTSIDE RECORDS SUMMARY | 2023-12-20 14:48 | XMS_ITS | Encounter Summary ---
Author Organization [facility] Address [address] [place] [address] Care Team Providers Care Interpreter Name Role Phone Jose Ramon Prado MD Primary Care Provider Amelia loving Reason for Visit * Reason Onset Date Comments Other 07/01/2017 Encounter Details Date Type Department Care Team (Late st Contact Info) Description 07/01/2017 Telephone [facility] Hand & Upper Extremity Program - [address] [address] Logan Rogers PA-C [address] [place] [phone] Other Social History Tobacco Use [...] Telephone Encounter - Larissa Dotson - 07/01/2017 1614 EDT Lashon from [facility] left a message on 06.30.17 @ 12:04 pm to find out if any of our providers could do a Permanent Impairment Disability test and if it could be done without a FCE. Larissa Dotson documented in this encounter Plan of Treatment Not on file documented as of this encounter Visit Diagnoses Not on filedocumented in this encounter Care Teams Interpreter Relationship Specialty Start Date End Date Jose Ramon Prado MD PCP - General 12/15/15 documented as of this encounter
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
--- OUTSIDE RECORDS SUMMARY | 2023-12-20 14:48 | XMS_ITS | Encounter Summary ---
Author Organization [facility] Address [address] [place] [address] Care Team Providers Care Cyber Security Systems Engineer Name Role Phone Jose Ramon Prado MD Primary Care Provider Amelia loving Reason for Referral * Consult (Routine) - Closed Specialty Diagnoses / Procedures Referred By Contac t Referred To Contact Diagnoses Cerebral contusion, unspecified laterality, with loss of consciousness of unspecified duration, subsequent encounter Sada Benjamin PA-C [address] [place] [phone] WAITING, TO BE ADDED Referral ID Status Reason Start Date Expiration Date V isits Requested Visits Authorized [id number] Closed Specialty Services Required 01/05/2016 1 1 Question Answer Reason for Request: traumatic brain injury Comments Consult for TBI management [place] Encounter Details Date Type Department Care Team (Late st Contact Info) Description 01/05/2016 Orders Only [facility] Neurosurgery - [address] [id number] Sada Benjamin PA-C [address] [place] [phone] Cerebral contusion, unspecified laterality, with loss of consciousness of unspecified duration, subsequent encounter (Primary Dx) Social History Tobacco [...] of this encounter Plan of Treatment Scheduled Referrals Name Type Priority Associated Diagnoses Orde r Schedule AMB CONS/FOLLOW UP PHYSIATRY Outpatient Referral Routine Cerebral contusion, unspecified laterality, with loss of consciousness of unspecified duration, subsequent encounter Ordered: 01/05/2016 documented as of this encounter Visit Diagnoses Diagnosis Cerebral contusion, unspecified laterality, with loss of consciousness of unspecified duration, subsequent encounter- Primary documented in this encounter Care Teams Cyber Security Systems Engineer Relationship Specialty Start Date End Date Jose Ramon Prado MD PCP - General 12/15/15 documented as of this encounter
--- OUTSIDE RECORDS SUMMARY | 2023-12-20 14:48 | XMS_ITS | Encounter Summary ---
Author Organization [facility] Address [address] [place] [address] Care Team Providers Care Recruitment Director Name Role Phone Jose Ramon Prado MD Primary Care Provider Amelia loving Reason for Visit * Reason Onset Date Comments Paperwork request 01/09/2016 Pt's mother ne eded FMLA paperwork for herself to care for patient; said neurology told her that trauma would need to fill out paperwork; ? if paperwork received & filled out. Encounter Details Date Type Department Care Team (Late st Contact Info) Description 01/09/2016 Telephone [facility] Acute Care Surgery - [facility] [address] [place] [address] Trauma, Surgery, MD Paperwork request (Pt's mother needed FMLA paperwork for herself to care for patient; said neurology told her that trauma would need to fill out paperwork; ? if paperwork received & filled out.) Social History Tobacco Use Types Packs/Day Years [...] Notes * Telephone Encounter - Lee Ann Uriostegui, RN - 01/09/2016 7590 EST Left message for patients mom. Left message that paperwork has been done and it will be faxed as requested. Call prn documented in this encounter Plan of Treatment Not on file documented as of this encounter Visit Diagnoses Not on filedocumented in this encounter Care Teams Recruitment Director Relationship Specialty Start Date End Date Jose Ramon Prado MD PCP - General 12/15/15 documented as of this encounter
--- OUTSIDE RECORDS SUMMARY | 2023-12-20 14:48 | XMS_ITS | Encounter Summary ---
Author Organization [facility] Address [address] [place] [address] Care Team Providers Care Model Maker Apprentice Name Role Phone Jose Ramon Prado MD Primary Care Provider Amelia loving Reason for Referral * Radiology Services (Routine) - Closed Specialty Diagnoses / Procedures Referred By Contac t Referred To Contact Diagnoses Forearm fractures, both bones, closed, right, with routine healing, subsequent encounter Procedures WRIST 2 VIEWS Fanta Munguia PA-C [address] [address] Referral ID Status Reason Start Date Expiration Date Visits Re quested Visits Authorized [id number] Closed 01/11/2016 1 1 Encounter Details Date Type Department Care Team (Late st Contact Info) Description 01/11/2016 Orders Only [facility] Hand & Upper Extremity Program [place] [address] [address] [place] [address] Fanta Munguia PA-C [address] [address] Forearm fractures, both bones, closed, [...] Associated Diagnosis Comments WRIST 2 VIEWS Routine 01/11/2016 15:23 EST Forearm fractures, both bones, closed, right, with routine healing, subsequent encounter documented in this encounter Results * WRIST 2 VIEWS (01/11/2016 15:23 EST) Anatomical Region Laterality Modality Other 01/11/2016 15:2 3 EST 01/11/2016 16:12 EST Narrative 01/11/2016 16:12 EST RIGHT WRIST 2 VIEWS 01/11/2016 3:23 PM CLINICAL HISTORY S52.201D-Unspecified fracture of shaft of right ulna, subsequent encounter for closed fracture with routine [id number] S52.91XD-Unspecified fracture of right forearm, subsequent encounter for closed fracture with routine [id number]; wrist fx s/p ORIF ?? COMPARISON January 01, 2016 TECHNIQUE 2 views of the right wrist were acquired. PA and lateral views. ?? FINDINGS No acute fracture, dislocation, or bone destruction. ? Plate fixation of distal radius in near-anatomic alignment and position without radiographic complication. Subacute fracture with mild new bone formation appears unchanged. Ulnar styloid process fracture in near-anatomic alignment and position with unchanged slight distal displacement, little if any new bone formation. IMPRESSION Distal radial and ulnar fractures, little if any change. Procedure Note Lashon Duggan MD - 01/11/2016 RIGHT WRIST 2 VIEWS 01/11/2016 3:23 PM CLINICAL HISTORY S52.201D-Unspecified fracture of shaft of right ulna, subsequent encounter for closed fracture with routine [id number] S52.91XD-Unspecified fracture of right forearm, subsequent encounter for closed fracture with routine [id number]; wrist fx s/p ORIF COMPARISON January 01, 2016 TECHNIQUE 2 views of the right wrist were acquired. PA and lateral views. FINDINGS No acute fracture, dislocation, or bone destruction. Plate fixation of distal radius in near-anatomic alignment and position without radiographic complication. Subacute fracture with mild new bone formation appears unchanged. Ulnar styloid process fracture in near-anatomic alignment and position with unchanged slight distal displacement, little if any new bone formation. IMPRESSION Distal radial and ulnar fractures, little if any change. Fanta Munguia PA-C IM DIAGNOST IC IMAGING ORDERABLES documented in this encounter Visit Diagnoses Diagnosis Forearm fractures, both bones, closed, right, with routine healing, subsequent encounter- Primary documented in this encounter Care Teams Model Maker Apprentice Relationship Specialty Start Date End Date Jose Ramon Prado MD PCP - General 12/15/15 documented as of this encounter
--- OUTSIDE RECORDS SUMMARY | 2023-12-20 14:48 | XMS_ITS | Referral Summary ---
Author Organization [facility] Address [address] [place] [address] Care Team Providers Care Alterations Expert Name Role Phone Jose Ramon Prado MD [...] original. Patient has given permission for the [facility] to verbally discuss the following information [...] Problem Noted Date Diagnosed Date Intracranial hemorrhage ([facility]) 12/15/2015 Forearm fractures, both bones, closed 12/15/2015 Closed fracture of frontal bone ([facility]) 2015 Immunizations Name Administration Dates Next Due [...] on file Sexual Orientation Not on file Last Filed Vital Signs Vital Sign Reading [...] Body Mass Index 28.48 06/26/2017 1023 EDT Functional Status Functional Status Response Date of [...] concentrating, remembering, or making decisions? Yes 07/01/2017 Plan of Treatment Not on file Advance Directives For more information, please contact: [phone] * Full Code (Latest Code Status on File) Date Activated Date Inactivated Comments 12/15/2015 21:37 12/21/2015 20:23 Question Answer Comments Reason for decision includes: Full code consistent with overall plan of care Who participated in the discussion? Patient Care Teams Alterations Expert Relationship Specialty Start Date End Date Jose Ramon Prado MD PCP - General 12/15/15
--- OUTSIDE RECORDS SUMMARY | 2023-12-20 14:48 | XMS_ITS | Encounter Summary ---
Author Organization [facility] Address [address] [place] [address] Care Team Providers Care Sap Architect Name Role Phone Jose Ramon Prado MD Primary Care Provider Amelia loving Reason for Referral * Radiology Services (Routine) - Specialty Report Received Specialty Diagnoses / Procedures Referred By Contac t Referred To Contact Diagnoses Traumatic hemorrhage of cerebrum with loss of consciousness, unspecified laterality, subsequent encounter Procedures CT HEAD VENOGRAM W CONTRAST Sada Benjamin PA-C [address] [place] [phone] Referral ID Status Reason Start Date Expiration Date V isits Requested Visits Authorized [id number] Specialty Report Received 12/29/2015 1 1 Encounter Details Date Type Department Care Team (Late st Contact Info) Description 12/28/2015 Orders Only [facility] Neurosurgery - [address] [id number] Sada Benjamin PA-C [address] [place] [phone] Traumatic hemorrhage of cerebrum with loss of consciousness, unspecified laterality, subsequent encounter (Primary Dx) Social History Tobacco [...] Priority Date/Time Associated Diagnosis Comments CT HEAD VENOGRAM W CONTRAST Routine 01/23/2016 11:37 EST Traumatic hemorrhage of cerebrum with loss of consciousness, unspecified laterality, subsequent encounter documented in this encounter Results * CT HEAD VENOGRAM W CONTRAST (01/23/2016 11:37 EST) Anatomical Region Laterality Modality Other 01/23/2016 11:3 7 EST 01/23/2016 17:44 EST Narrative 01/23/2016 17:[address] HEAD VENOGRAM W CONTRAST ??01/23/2016 11:37 AM HISTORY: S06.369D-Traumatic hemorrhage of cerebrum, unspecified, with loss of consciousness of unspecified duration, subsequent [id number]; ich with skull fx COMPARISON: Multiple prior CT head venograms, most recent dated 12/16/2015 TECHNIQUE: Axial CT images of the head were obtained, first without intravenous contrast and then following intravenous administration of 65 cc of Omnipaque at 4.0 cc/sec. Coronal reconstructions were generated. CT HEAD FINDINGS: There has been interval evolution of previously characterized right temporal pole hemorrhagic contusion with only mild residual hyperdensity noted at the right frontal pole on the current examination. There is no convincing evidence of residual parafalcine subdural hemorrhage. No new intracranial hemorrhage is identified. Aside from the above-mentioned right temporal pole, anderson-white differentiation is preserved and the ventricles and sulci are normal. There is no midline shift and the basilar cisterns are patent. The globes and orbits are intact. The paranasal sinuses, mastoid air cells, and middle ears are clear. A nondisplaced fracture is redemonstrated extending from the right frontal sinus across the frontal calvarium to the bregma, unchanged. Mild diastases of the anterior aspect of the sagittal suture. No new fracture is identified. The extracranial soft tissues are unremarkable. CT VENOGRAM FINDINGS: There has been near complete resolution of previously characterized epidural hemorrhage at the cranial vertex overlying the superior sagittal sinus, with only trace extra-axial fluid overlying the widely patent superior sagittal sinus. There has been interval improvement in mild inferior displacement of the superior sagittal sinus as well. The remaining cortical veins and venous sinuses appear normal. IMPRESSION: 1. Near complete resolution of previously characterized vertex epidural hemorrhage with only trace extra-axial fluid overlying the widely patent superior sagittal sinus. 2. Interval evolution of right temporal pole contusion with only mild residual hypodensity evident on the current examination. 3. Interval resolution of small parafalcine subdural hemorrhage. 4. Unchanged nondisplaced/nondepressed calvarial fracture extending from the right frontal sinus to the bregma. Mild diastases of the anterior aspect of the sagittal suture is again seen. I have personally reviewed the images and the above interpretation and agree with the findings. Procedure Note Ab Albarran P - 01/23/2016 CT HEAD VENOGRAM W CONTRAST 01/23/2016 11:37 AM HISTORY: S06.369D-Traumatic hemorrhage of cerebrum, unspecified, with loss of consciousness of unspecified duration, subsequent [id number]; ich with skull fx COMPARISON: Multiple prior CT head venograms, most recent dated 12/16/2015 TECHNIQUE: Axial CT images of the head were obtained, first without intravenous contrast and then following intravenous administration of 65 cc of Omnipaque at 4.0 cc/sec. Coronal reconstructions were generated. CT HEAD FINDINGS: There has been interval evolution of previously characterized right temporal pole hemorrhagic contusion with only mild residual hyperdensity noted at the right frontal pole on the current examination. There is no convincing evidence of residual parafalcine subdural hemorrhage. No new intracranial hemorrhage is identified. Aside from the above-mentioned right temporal pole, anderson-white differentiation is preserved and the ventricles and sulci are normal. There is no midline shift and the basilar cisterns are patent. The globes and orbits are intact. The paranasal sinuses, mastoid air cells, and middle ears are clear. A nondisplaced fracture is redemonstrated extending from the right frontal sinus across the frontal calvarium to the bregma, unchanged. Mild diastases of the anterior aspect of the sagittal suture. No new fracture is identified. The extracranial soft tissues are unremarkable. CT VENOGRAM FINDINGS: There has been near complete resolution of previously characterized epidural hemorrhage at the cranial vertex overlying the superior sagittal sinus, with only trace extra-axial fluid overlying the widely patent superior sagittal sinus. There has been interval improvement in mild inferior displacement of the superior sagittal sinus as well. The remaining cortical veins and venous sinuses appear normal. IMPRESSION: 1. Near complete resolution of previously characterized vertex epidural hemorrhage with only trace extra-axial fluid overlying the widely patent superior sagittal sinus. 2. Interval evolution of right temporal pole contusion with only mild residual hypodensity evident on the current examination. 3. Interval resolution of small parafalcine subdural hemorrhage. 4. Unchanged nondisplaced/nondepressed calvarial fracture extending from the right frontal sinus to the bregma. Mild diastases of the anterior aspect of the sagittal suture is again seen. I have personally reviewed the images and the above interpretation and agree with the findings. Sada Benjamin PA-C IMG CT BRIELLEAnahi BENITO documented in this encounter Visit Diagnoses Diagnosis Traumatic hemorrhage of cerebrum with loss of consciousness, unspecified laterality, subsequent encounter- Primary documented in this encounter Care Teams Sap Architect Relationship Specialty Start Date End Date Jose Ramon Prado MD PCP - General 12/15/15 documented as of this encounter
--- OUTSIDE RECORDS SUMMARY | 2023-12-20 14:48 | XMS_ITS | Encounter Summary ---
Author Organization [facility] Address [address] [place] [address] Care Team Providers Care Loose Hand Packer Name Role Phone Jose Ramon Prado MD Primary Care Provider Amelia loving Reason for Visit * Reason Onset Date Comments Appointment Related 01/03/2016 Encounter Details Date Type Department Care Team (Late st Contact Info) Description 01/03/2016 Telephone [facility] Neurosurgery - [facility] [address], [place] [phone] Sada Benjamin PA-C [address] [facility], [address] [place] [phone] Appointment Related Social History Tobacco [...] Miscellaneous Notes * Telephone Encounter - Ruth Gallo - 01/03/2016 1023 EST Spoke with patient's mother, Silke, and confirmed the details for his follow up. 01/23/16: Check in at 11am, CT at 11:30am - [facility] Appointment at 1pm with IZAIAH Lloyd - EP, [facility]. Silke verbalized understanding and denied having any questions or concerns at this time. documented in this encounter Plan of Treatment Not on file documented as of this encounter Visit Diagnoses Not on filedocumented in this encounter Care Teams Loose Hand Packer Relationship Specialty Start Date End Date Jose Ramon Prado MD PCP - General 12/15/15 documented as of this encounter
--- OUTSIDE RECORDS SUMMARY | 2023-12-20 14:49 | XMS_ITS | Encounter Summary ---
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 amounts of subdural blood along the falx. 4. Parenchymal contusions in the right frontal lobe with possible small amount of adjacent subarachnoid hemorrhage. Procedure Note Alexis Remy MD - 10/01/2017 Addendum Begins Addendum: This report has been addended for association with another accession number for billing purposes. The text has not been changed. /[facility] Addendum Ends Secondary read CT of the head December 15, 2015. HISTORY: Trauma. COMPARISON: None. TECHNIQUE: CT images were acquired from the vertex through the foramen magnum. FINDINGS: There is a fracture of the frontal bone to the left of midline which extends into the region of the left sagittal suture. There is an overlying scalp hematoma. Beneath the hematoma there appears to be a collection within the extra-axial space which displaces the superior sagittal sinus inferiorly well seen on the coronal views likely reflecting the presence of a venous epidural hemorrhage. This is seen well for example on image 33 of series 11. More anteriorly within the parenchyma there is a small amount of hyperdensity in the right frontal lobe which may reflect parenchymal contusion. There may also be a small amount of associated subarachnoid blood. There is also probable parenchymal contusion in the ventral frontal lobe on the right or inferiorly. A small amount of thickening along the falx anteriorly likely reflects subdural blood and there may be a small amount of subdural blood more posteriorly along the falx as well without significant mass effect. Ventricular caliber is normal. The basal cisterns remain patent. The paranasal sinuses and mastoid air cells are clear. IMPRESSION: 1. Frontal bone fracture extending to the sagittal suture with overlying scalp hematoma. 2. Probable venous epidural hemorrhage beneath the fracture displacing the superior sagittal sinus inferiorly. CT venogram may be helpful to assess venous patency. 3. Probable small amounts of subdural blood along the falx. 4. Parenchymal contusions in the right frontal lobe with possible small amount of adjacent subarachnoid hemorrhage. Mark Gold MD PhD IMG OTHER IMAGING ORDERABLES * SECONDARY READ BODY CT (12/15/2015 22:20 EDT) Anatomical Region Laterality Modality Other 12/15/2015 22:2 0 EDT 12/16/2015 13:02 EDT Narrative 12/16/2015 13:02 EDT SECONDARY READ BODY CT 12/15/2015 10:20 PM Signs and Symptoms/Comments: ??Imaging Finding Not Addressed in Outside Report; Trauma, Concern for spine fracture Tenderness on exam in C-spineHÉCTOR12/15/15 CT ABD/PELVIS W/IV CONTRAST...W/FINAL REPORT... Comparison: 5 mm axial sections were obtained from the dome of the liver to the pubic symphysis following the administration of IV contrast. COMPARISON: None available. FINDINGS: Please refer to the dedicated CT scan of the chest for full evaluation of findings. The liver, spleen, adrenal glands, pancreas and gallbladder are unremarkable. Both kidneys enhance symmetrically. A cyst is present within the mid left kidney. There is no evidence of hydronephrosis of either kidney. The aorta is normal in caliber and demonstrates no evidence of atherosclerotic disease. There is no evidence of abdominal or pelvic adenopathy. There is a full, normal-appearing bladder. A moderate amount of stool is noted within the colon. The on prepped unopacified bowel is otherwise grossly unremarkable. There is a normal-appearing appendix. The prostate gland and seminal vesicles are within normal limits. There is no evidence of free fluid, free air or abscess. A small amount of subcutaneous fat stranding is noted adjacent to the right fascia richard muscle. Bone windows are unremarkable. IMPRESSION: 1. No evidence of solid organ injury or contrast extravasation on this single phase study. 2. Small amount of fluid and fat stranding adjacent to the right fascia richard musculature. 3. Small cyst within the mid left kidney. These findings differ slightly from the outside interpretation in that the small amount of fat stranding and free fluid adjacent to the right fascia richard musculature was not mentioned. Portions of this document may have been prepared with speech recognition software or keyboard sql data analyst techniques. Minor irregularities or keyboarding misprints may be present. Procedure Note Radha Macario MD - 12/16/[address] 12/15/2015 10:20 PM Signs and Symptoms/Comments: Imaging Finding Not Addressed in Outside Report; Trauma, Concern for spine fracture Tenderness on exam in C-spineHÉCTOR12/15/15 CT ABD/PELVIS W/IV CONTRAST...W/FINAL REPORT... Comparison: 5 mm axial sections were obtained from the dome of the liver to the pubic symphysis following the administration of IV contrast. COMPARISON: None available. FINDINGS: Please refer to the dedicated CT scan of the chest for full evaluation of findings. The liver, spleen, adrenal glands, pancreas and gallbladder are unremarkable. Both kidneys enhance symmetrically. A cyst is present within the mid left kidney. There is no evidence of hydronephrosis of either kidney. The aorta is normal in caliber and demonstrates no evidence of atherosclerotic disease. There is no evidence of abdominal or pelvic adenopathy. There is a full, normal-appearing bladder. A moderate amount of stool is noted within the colon. The on prepped unopacified bowel is otherwise grossly unremarkable. There is a normal-appearing appendix. The prostate gland and seminal vesicles are within normal limits. There is no evidence of free fluid, free air or abscess. A small amount of subcutaneous fat stranding is noted adjacent to the right fascia richard muscle. Bone windows are unremarkable. IMPRESSION: 1. No evidence of solid organ injury or contrast extravasation on this single phase study. 2. Small amount of fluid and fat stranding adjacent to the right fascia richard musculature. 3. Small cyst within the mid left kidney. These findings differ slightly from the outside interpretation in that the small amount of fat stranding and free fluid adjacent to the right fascia richard musculature was not mentioned. Portions of this document may have been prepared with speech recognition software or keyboard sql data analyst techniques. Minor irregularities or keyboarding misprints may be present. Mark Gold MD PhD IMG OTHER IMAGING ORDERABLES * SECONDARY READ CHEST CT (12/15/2015 22:16 EDT) Anatomical Region Laterality Modality Other 12/15/2015 22:1 6 EDT 12/16/2015 13:07 EDT Narrative 12/16/2015 13:07 EDT SECONDARY READ CHEST CT 12/15/2015 10:16 PM Signs and Symptoms/Comments: ??Imaging Finding Not Addressed in Outside Report; Trauma, Concern for spine fracture Tenderness on exam in C-spineHÉCTOR12/15/15 CT CHEST W/CONTRAST...W/FINAL REPORT... Comparison: None available. TECHNIQUE: 5 mm axial sections were obtained from above the level of the lung apices to the level of the diaphragm. FINDINGS: Evaluation of the chest wall demonstrates mild bilateral gynecomastia. The heart and pericardium are grossly unremarkable. There is no evidence of pericardial or pleural effusion. No mediastinal or hilar adenopathy is present. The thoracic aorta is normal in caliber and grossly unremarkable. There is no evidence of aortic dissection on this single phase study. The airways are patent. There is no evidence of a pneumothorax. Mild mosaic attenuation may reflect findings of air trapping. Lungs are otherwise clear. Please refer to the dedicated CT scan of the abdomen and pelvis and cervical spine for full evaluation of any findings. Impression: No evidence of thoracic injury. These findings do not significantly differ from the outside interpretation. Portions of this document may have been prepared with speech recognition software or keyboard sql data analyst techniques. Minor irregularities or keyboarding misprints may be present. Procedure Note aRdha Macario MD - 12/16/[address] 12/15/2015 10:16 PM Signs and Symptoms/Comments: Imaging Finding Not Addressed in Outside Report; Trauma, Concern for spine fracture Tenderness on exam in C-spineHÉCTOR12/15/15 CT CHEST W/CONTRAST...W/FINAL REPORT... Comparison: None available. TECHNIQUE: 5 mm axial sections were obtained from above the level of the lung apices to the level of the diaphragm. FINDINGS: Evaluation of the chest wall demonstrates mild bilateral gynecomastia. The heart and pericardium are grossly unremarkable. There is no evidence of pericardial or pleural effusion. No mediastinal or hilar adenopathy is present. The thoracic aorta is normal in caliber and grossly unremarkable. There is no evidence of aortic dissection on this single phase study. The airways are patent. There is no evidence of a pneumothorax. Mild mosaic attenuation may reflect findings of air trapping. Lungs are otherwise clear. Please refer to the dedicated CT scan of the abdomen and pelvis and cervical spine for full evaluation of any findings. Impression: No evidence of thoracic injury. These findings do not significantly differ from the outside interpretation. Portions of this document may have been prepared with speech recognition software or keyboard sql data analyst techniques. Minor irregularities or keyboarding misprints may be present. Mark Gold MD PhD IMG OTHER IMAGING ORDERABLES * MRSA PCR (12/15/2015 21:40 EDT) Specimen Description Nasal 12/15/2015 22:01 T [facility] Comment:Specimen submitted o n a flocked swab. Result Methicillin susceptible Staphylococcus aureus (MSSA) DNA detected by PCR. 12/16/2015 10:35 T [facility] Specimen of unknown material (specimen) TOPOGRAPHY UNKNOWN / Unknown 12/15/2015 21:40 EDT 12/15/2015 22:01 EDT Mark Gold MD PhD MICROBIOLO GY - GENERAL ORDERABLES [facility] [address] [place] [address] * WRIST 2 VIEWS (12/15/2015 21:01 EDT) Anatomical Region Laterality Modality Other 12/15/2015 21:0 1 EDT 12/16/2015 10:45 EDT Narrative 12/16/2015 10:45 EDT WRIST 2 VIEWS ??12/15/2015 9:01 PM Signs and Symptoms/Comments: ?? post reduc Comparison: 12/15/2015, one hour and 5 hours prior Findings: PA and lateral views of the right wrist were obtained. Redemonstrated is a comminuted intra-articular fracture involving the distal radius. Oblique fracture through the ulnar styloid is also present. In comparison with the prior, there is slight improvement of bony approximation. Overlying casting material obscures the soft tissues. I have personally reviewed the images and the above interpretation and agree with the findings. Procedure Note Jacky Decker MD - 12/16/2015 WRIST 2 VIEWS 12/15/2015 9:01 PM Signs and Symptoms/Comments: post reduc Comparison: 12/15/2015, one hour and 5 hours prior Findings: PA and lateral views of the right wrist were obtained. Redemonstrated is a comminuted intra-articular fracture involving the distal radius. Oblique fracture through the ulnar styloid is also present. In comparison with the prior, there is slight improvement of bony approximation. Overlying casting material obscures the soft tissues. I have personally reviewed the images and the above interpretation and agree with the findings. Natanael Castro MD IMG DIAGNOSTIC IMAG ING ORDERABLES * LACTIC ACID (12/15/2015 19:51 EDT) Lactic Acid 0.7 <2.0 mmol/L 12/15/2015 20:19 EDT [facility] Blood specimen (specimen) BLOOD SPECIMEN / Unknown 12/15/2015 19:51 EDT 12/15/2015 20:05 EDT Jassi Cohen MD CHEMISTRY & BLOOD GA S ORDERABLES Performing Organization Address [facility] Co de Phone Number [facility] [address] [place] [address] * PHOSPHORUS (12/15/2015 19:51 EDT) Phosphorus 3.8 2.5 - 4.5 mg/dl 12/15/2015 20:20 EDT [facility] Comment: Slight hemolysis Results may be affected due to hemolysis. Blood specimen (specimen) BLOOD SPECIMEN / Unknown 12/15/2015 19:51 EDT 12/15/2015 20:04 EDT Jassi Cohen MD CHEMISTRY & BLOOD GA S ORDERABLES Performing Organization Address [facility] de Phone Number [facility] [address] [place] [address] * CALCIUM, IONIZED (12/15/2015 19:51 EDT) Calcium, Ionized 1.13 1.12 - 1.32 mmol/L 12/15/2015 20:26 EDT [facility] Blood specimen (specimen) BLOOD SPECIMEN / Unknown 12/15/2015 19:51 EDT 12/15/2015 20:04 EDT Jassi Cohen MD CHEMISTRY & BLOOD GA S ORDERABLES Performing Organization Address [facility] de Phone Number [facility] [address] [place] [address] * MAGNESIUM (12/15/2015 19:51 EDT) Magnesium 1.7 1.7 - 2.8 mg/dl 12/15/2015 20:20 EDT [facility] Comment: Slight hemolysis Results may be affected due to hemolysis. Blood specimen (specimen) BLOOD SPECIMEN / Unknown 12/15/2015 19:51 EDT 12/15/2015 20:04 EDT Natalie Gongora MD CHEMISTRY & BLOOD GAS ORDERABLES [facility] [address] [place] [address] * CREATININE (12/15/2015 19:51 EDT) Creatinine 0.74 0.66 - 1.25 mg/dl 12/15/2015 20:20 EDT [facility] Comment:Slight hemolysis GFR, Calculated 131 >60 ml/min/1.7 3m2 12/15/2015 20:20 EDT [facility] Comment: eGFR calculated using CKD-EPI equation for non Americans. Multiply eGFR by 1.16 for Americans. Blood specimen (specimen) BLOOD SPECIMEN / Unknown 12/15/2015 19:51 EDT 12/15/2015 20:04 EDT Natalie Gongora MD CHEMISTRY & BLOOD GAS ORDERABLES Performing Organization Address [facility] Co de Phone Number [facility] [address] [place] [address] * BUN (12/15/2015 19:51 EDT) BUN 12 10 - 26 mg/dl 12/15/2015 20:20 EDT [facility] Comment: Slight hemolysis Results may be affected due to hemolysis. Blood specimen (specimen) BLOOD SPECIMEN / Unknown 12/15/2015 19:51 EDT 12/15/2015 20:04 EDT Natalie Gongora MD CHEMISTRY & BLOOD GAS ORDERABLES Performing Organization Address City/[facility]/ZIP Co de Phone Number [facility] [address] [place] [address] * ELECTROLYTES (12/15/2015 19:51 EDT) Sodium 139 136 - 145 mEq/L 12/15/2015 20:20 EDT [facility] Comment:Slight hemolysis Potassium 4.4 3.5 - 5.0 mEq/L 12/15/2015 [facility]: Slight hemolysis Hemolysis may elevate potassium result. Chloride 106 96 - 110 mEq/L 12/15/2015 20:20 [facility] Comment:Slight hemolysis CO2 22 22 - 32 mEq/L 12/15/2015 20:20 [facility] Comment: Slight hemolysis Note new reference range 11/28/15 Blood specimen (specimen) BLOOD SPECIMEN / Unknown 12/15/2015 19:51 EDT 12/15/2015 20:04 EDT Natalie Gongora MD CHEMISTRY & BLOOD GAS ORDERABLES [facility] [address] [place] [address] * (ABNORMAL) HEMAGRAM AND DIFFERENTIAL (12/15/2015 19:51 EDT) WBC 13.96(H) 4.0 - 10.4 K/cmm 12/15/2015 20:09 [facility] RBC 4.41 4.36 - 5.78 M/cmm 12/15/2015 20:09 [facility] Hemoglobin 13.4(L) 13.8 - 17.3 gm/dl 12/15/2015 20:09 [facility] HCT 37.5(L) 39.5 - 50.2 % 12/15/2015 20:09 [facility] MCV 85 81 - 95 fl 12/15/2015 20:09 [facility] MCH 30.4 27.6 - 33.0 pg 12/15/2015 20:09 [facility] MCHC 35.7 32.8 - 36.4 gm/dl 12/15/2015 20:09 [facility] RDW-CV 12.2 11.8 - 14.1 % 12/15/2015 20:09 [facility] RDW-SD 37.8 36.5 - 45.9 fl 12/15/2015 20:09 [facility] PLT 187 141 - 377 K/cmm 12/15/2015 20:09 [facility] MPV 9.5 9.5 - 12.7 fl 12/15/2015 20:09 [facility] % Neutrophils 93.5 % 12/15/2015 20:09 [facility] % Lymphocytes 3.2 % 12/15/2015 20:09 [facility] % Monocytes 2.8 % 12/15/2015 20:09 [facility] % Eosinophils 0.0 % 12/15/2015 20:09 [facility] % Basophils 0.1 % 12/15/2015 20:09 [facility] SERVICES % Immature Grans 0.4 % 12/15/2015 20:09 [facility] ABS Neutrophils 13.05(H) 2.20 - 8.85 K/cmm 12/15/2015 20:09 [facility] ABS Lymphs 0.44(L) 1.09 - 3.30 K/cmm 12/15/2015 20:09 [facility] ABS Monocytes 0.39 0.1 - 0.8 K/cmm 12/15/2015 20:09 [facility] ABS Eosinophils 0.00(L) 0.03 - 0.61 K/cmm 12/15/2015 20:09 [facility] ABS Basophils 0.02 0.01 - 0.11 K/cmm 12/15/2015 20:09 [facility] ABS Immature Grans 0.06 0 - 0.06 K/cmm 12/15/2015 20:09 [facility] Type of Diff: Automated 12/15/2015 20:09 [facility] Blood specimen (specimen) BLOOD SPECIMEN / Unknown 12/15/2015 19:51 EDT 12/15/2015 20:04 EDT Natalie Gongora MD PACKAGES & D NA PROBE ORDERABLES [facility] [address] [place] [address] * (ABNORMAL) SCREENING GLUCOSE (12/15/2015 19:51 EDT) Glucose, Screening 109(H) 70 - 100 mg/dl 12/15/2015 20:20 EDT [facility] Comment: Slight hemolysis Results may be affected due to hemolysis. Blood specimen (specimen) BLOOD SPECIMEN / Unknown 12/15/2015 19:51 EDT 12/15/2015 20:04 EDT Jassi Cohen MD CHEMISTRY & BLOOD GA S ORDERABLES [facility] [address] [place] [address] * WRIST 2 VIEWS (12/15/2015 19:34 EDT) Anatomical Region Laterality Modality Other 12/15/2015 19:3 4 EDT 12/15/2015 20:35 EDT Narrative 12/15/2015 20:35 EDT WRIST 2 VIEWS ??12/15/2015 7:34 PM Clinical History/Comments: post reduction COMPARISON: Films from 4 hours prior. 2 views were obtained of the right wrist. There has been interval placement of splint material. Again noted are fractures involving the distal radius and ulna with improved alignment compared to the prior exam. There is intra-articular extension involving the distal radial fracture. Procedure Note Jacky Decker MD - 12/15/2015 WRIST 2 VIEWS 12/15/2015 7:34 PM Clinical History/Comments: post reduction COMPARISON: Films from 4 hours prior. 2 views were obtained of the right wrist. There has been interval placement of splint material. Again noted are fractures involving the distal radius and ulna with improved alignment compared to the prior exam. There is intra-articular extension involving the distal radial fracture. Natanael Castro MD IMG DIAGNOSTIC IMAG ING ORDERABLES * CT HEAD VENOGRAM W CONTRAST (12/15/2015 18:16 EDT) Anatomical Region Laterality Modality Other 12/15/2015 18:1 6 EDT 12/15/2015 19:05 EDT Narrative 12/15/2015 19:[address] HEAD VENOGRAM W CONTRAST ??12/15/2015 6:16 PM SIGNS AND SYMPTOMS/COMMENTS: Trauma COMPARISON: None TECHNIQUE: Axial CT images of the head were obtained from the vertex through the foramen magnum in bone and soft tissue windows without contrast and reconstructed in coronal orientation. An additional CT venogram of the head was then obtained with intravenous contrast. CT HEAD FINDINGS: A small amount of layering subarachnoid hemorrhage is identified along the right superior and middle frontal gyri anteriorly as well as the left superior gyrus. Small hemorrhagic contusion involves the right temporal pole. An extra-axial collection is noted along the vertex subjacent to the superior sagittal sinus measuring roughly 4 mm in thickness (e.g., coronal image 92). A tiny parafalcine subdural collection is suspected posteriorly (axial image 73, coronal image 109). There is no CT evidence of large distribution acute infarct. The ventricles are within normal limits. No midline shift is present and the basilar cisterns are patent. A nondisplaced fracture extends from the right frontal sinus, superiorly through the midline of the frontal bone, and ending at the bregma. The anterior aspect of the sagittal suture is minimally widened with respect to the coronal sutures, possibly representing mild sutural diastases. A large subgaleal hematoma overlies this fracture. A small amount of hemorrhage is present within the right frontal sinus. The paranasal sinuses are otherwise clear. The mastoid air cells and middle ears are clear. The globes and orbits are intact. IMPRESSION: 1. Nondisplaced calvarial fracture extending from the right frontal sinus to the bregma with possible minimal diastases of the anterior aspect of the sagittal suture. Small epidural collection of blood subjacent to the fracture, just above the superior sagittal sinus. 2. Small amount of layering subarachnoid hemorrhage predominantly along the frontal lobes, right greater than left. Right temporal pole hemorrhagic contusion. Small parafalcine subdural hemorrhage. Large subgaleal hematoma overlying nondisplaced calvarial fracture. CT VENOGRAM FINDINGS: The transverse and sigmoid sinuses appear grossly patent. The superior sagittal sinus appears partially compressed and narrowed in the region of subjacent epidural hemorrhage but remains patent. A small focus of high density adjacent to the superior sagittal sinus within the epidural collection (e.g., axial image 67, coronal image 59) could reflect a small focus of extra vascular extravasation versus artifact. IMPRESSION: 1. Compressed but patent superior sagittal sinus in the region of previously described midline convexity epidural hemorrhage limited to the calvarial fracture. 2. Small focus of high density adjacent to the superior sagittal sinus within the epidural collection could reflect a small focus of extravascular extravasation versus artifact. Short interval follow-up head CT is recommended to exclude expansion of the epidural hematoma. The results of this examination were communicated by phone to Xavier Cohen MD immediately upon discovery on 12/15/2015 6:44 PM and findings were repeated back to me to signify understanding according to our critical results reporting policy. I have personally reviewed the images and the above interpretation and agree with the findings. Procedure Note Ab Albarran P - 12/15/2015 CT HEAD VENOGRAM W CONTRAST 12/15/2015 6:16 PM SIGNS AND SYMPTOMS/COMMENTS: Trauma COMPARISON: None TECHNIQUE: Axial CT images of the head were obtained from the vertex through the foramen magnum in bone and soft tissue windows without contrast and reconstructed in coronal orientation. An additional CT venogram of the head was then obtained with intravenous contrast. CT HEAD FINDINGS: A small amount of layering subarachnoid hemorrhage is identified along the right superior and middle frontal gyri anteriorly as well as the left superior gyrus. Small hemorrhagic contusion involves the right temporal pole. An extra-axial collection is noted along the vertex subjacent to the superior sagittal sinus measuring roughly 4 mm in thickness (e.g., coronal image 92). A tiny parafalcine subdural collection is suspected posteriorly (axial image 73, coronal image 109). There is no CT evidence of large distribution acute infarct. The ventricles are within normal limits. No midline shift is present and the basilar cisterns are patent. A nondisplaced fracture extends from the right frontal sinus, superiorly through the midline of the frontal bone, and ending at the bregma. The anterior aspect of the sagittal suture is minimally widened with respect to the coronal sutures, possibly representing mild sutural diastases. A large subgaleal hematoma overlies this fracture. A small amount of hemorrhage is present within the right frontal sinus. The paranasal sinuses are otherwise clear. The mastoid air cells and middle ears are clear. The globes and orbits are intact. IMPRESSION: 1. Nondisplaced calvarial fracture extending from the right frontal sinus to the bregma with possible minimal diastases of the anterior aspect of the sagittal suture. Small epidural collection of blood subjacent to the fracture, just above the superior sagittal sinus. 2. Small amount of layering subarachnoid hemorrhage predominantly along the frontal lobes, right greater than left. Right temporal pole hemorrhagic contusion. Small parafalcine subdural hemorrhage. Large subgaleal hematoma overlying nondisplaced calvarial fracture. CT VENOGRAM FINDINGS: The transverse and sigmoid sinuses appear grossly patent. The superior sagittal sinus appears partially compressed and narrowed in the region of subjacent epidural hemorrhage but remains patent. A small focus of high density adjacent to the superior sagittal sinus within the epidural collection (e.g., axial image 67, coronal image 59) could reflect a small focus of extra vascular extravasation versus artifact. IMPRESSION: 1. Compressed but patent superior sagittal sinus in the region of previously described midline convexity epidural hemorrhage limited to the calvarial fracture. 2. Small focus of high density adjacent to the superior sagittal sinus within the epidural collection could reflect a small focus of extravascular extravasation versus artifact. Short interval follow-up head CT is recommended to exclude expansion of the epidural hematoma. The results of this examination were communicated by phone to Xavier Cohen MD immediately upon discovery on 12/15/2015 6:44 PM and findings were repeated back to me to signify understanding according to our critical results reporting policy. I have personally reviewed the images and the above interpretation and agree with the findings. Jassi Cohen MD IMG CT ORDERABLES * PORTABLE CHEST 1 VIEW (12/15/2015 17:57 EDT) Anatomical Region Laterality Modality Other 12/15/2015 17:5 7 EDT 12/15/2015 18:17 EDT Narrative 12/15/2015 18:17 EDT PORTABLE CHEST 1 VIEW ??12/15/2015 5:57 PM Clinical History/Comments: trauma Comparison: None. Findings: Single portable AP view of the chest. Lines/tubes: ??None Soft tissues and bones: No significant abnormalities. Cardiac and mediastinal contours: Normal. Lungs: Clear. Pleura: No visible pleural abnormalities. Impression: 1. ??Normal AP chest x-ray Procedure Note Jacky Decker MD - 12/15/2015 PORTABLE CHEST 1 VIEW 12/15/2015 5:57 PM Clinical History/Comments: trauma Comparison: None. Findings: Single portable AP view of the chest. Lines/tubes: None Soft tissues and bones: No significant abnormalities. Cardiac and mediastinal contours: Normal. Lungs: Clear. Pleura: No visible pleural abnormalities. Impression: 1. Normal AP chest x-ray Jassi Cohen MD IMG DIAGNOSTIC IMAGI NG ORDERABLES documented in this encounter Visit Diagnoses Diagnosis Intracranial hemorrhage (HCC-CMS)- Primary Unspecified intracranial hemorrhage Intracranial hemorrhage (HCC-CMS) Unspecified intracranial hemorrhage Forearm fractures, both bones, closed, right, initial encounter Closed fracture of frontal bone, initial encounter (HCC-CMS) Other closed intra-articular fracture of distal end of right radius, initial encounter Concussion, without loss of consciousness, initial encounter Forearm fractures, both bones, closed Closed fracture of unspecified part of radius with ulna Closed fracture of frontal bone (HCC-CMS) documented in this encounter Administered Medications Inactive Administered Medications - up to 3 most recent administrations Medication Order MAR Action Action Date Dose Rate Site acetaminophen (OFIRMEV) IV solution 1,000 mg 1,000 mg, intravenous, EVERY 6 HOURS, 1 dose, First dose on 12/16/15 at 2000, Is the patient NPO? If No, state reason why oral acetaminophen cannot be used in Comment field. No, Is this patient nothing by rectum? If No, state why rectal acetaminophen cannot be used in the Comment field. No, Are NSAIDs contraindicated in this patient? No, Is the patient in ED, PACU or ICU? No, STAT Given 12/16/2015 20:56 EDT 1,000 mg acetaminophen (TYLENOL) tablet 1,000 mg 1,000 mg, oral, EVERY 6 HOURS, First dose on Fri12/17/15 at 1200, Until Discontinued, Routine Given 12/21/2015 11:59 EST 1,000 mg Given 12/21/2015 6:22 EST 1,000 mg Given 12/21/2015 0:29 EST 1,000 mg acetaminophen (TYLENOL) tablet 650 mg 650 mg, oral, EVERY 4 HOURS PRN, Starting on Fri12/15/15 at 2137, Until 12/16/15 at 1938, Pain, Routine Given 12/16/2015 14:24 EDT 650 mg Given 12/16/2015 10:27 EDT 650 mg Given 12/16/2015 6:02 EDT 650 mg ceFAZolin (ANCEF) syringe 2 g 2 g, intravenous, Administer over 10 Minutes, PRE-OP ONCE, 1 dose, On Fri12/19/15 at 1200, Routine Given by Other 12/19/2015 15:41 EST 2 g docusate sodium (COLACE) capsule 100 mg 100 mg, oral, 2 TIMES DAILY, First dose on Fri12/15/15 at 2200, Until Discontinued, Routine Given 12/20/2015 21:29 EST 100 mg Given 12/20/2015 9:52 EST 100 mg Given 12/19/2015 20:17 EST 100 mg docusate sodium (COLACE) capsule 200 mg 200 mg, oral, 2 TIMES DAILY, First dose (after last modification) on Fri12/21/15 at 0900, Until Discontinued, Routine Given 12/21/2015 8:35 EST 200 mg enoxaparin (LOVENOX) injection 40 mg 40 mg, subcutaneous, AT BEDTIME, First dose on Fri12/18/15 at 2100, Until Discontinued, Routine Given 12/18/2015 20:06 EST 40 mg enoxaparin (LOVENOX) injection 40 mg 40 mg, subcutaneous, AT BEDTIME, First dose (after last modification) on Fri12/20/15 at 2100, Until Discontinued, Routine Given 12/20/2015 21:30 EST 40 mg famotidine (PEPCID) tablet 20 mg 20 mg, oral, 2 TIMES DAILY, First dose on Fri12/15/15 at 2200, Until Discontinued, Routine Given 12/20/2015 21:30 EST 2 0 mg Given 12/20/2015 9:52 EST 20 mg Given 12/19/2015 20:17 EST 20 mg fentaNYL citrate (PF) 50 mcg/mL injection 25-100 mcg 25-100 mcg, intravenous, EVERY 5 MIN PRN, Starting on Fri12/19/15 at 1657, Until Fri12/19/15 at 1916, Pain, Routine, Recovery (only) Given 12/19/2015 1 8:10 EST 25 mcg fentaNYL citrate (PF) 50 mcg/mL injection 50 mcg 50 mcg, intravenous, NOW X1, 1 dose, On Fri12/15/15 at 1745, STAT Given 12/15/2015 17:40 EDT 50 mcg fentaNYL citrate (PF) 50 mcg/mL injection 50 mcg 50 mcg, intravenous, NOW X1, 1 dose, On Fri12/15/15 at 1830, STAT Given 12/15/2015 18:20 EDT 50 mcg fentaNYL citrate (PF) 50 mcg/mL injection 50 mcg 50 mcg, intravenous, NOW X1, 1 dose, On Fri12/15/15 at 2030, STAT Given 12/15/2015 20:21 EDT 50 mcg folic acid (FOLVITE) tablet 1 mg 1 mg, oral, DAILY, 3 doses, First dose on Fri12/16/15 at 0900, Last dose on Fri12/18/15 at 0900, Routine Given 12/18/2015 8:40 EST 1 mg Given 12/17/2015 9:08 EST 1 mg Given 12/16/2015 8:29 EDT 1 mg HYDROmorphone (DILAUDID) tablet 2-4 mg 2-4 mg, oral, EVERY 4 HOURS PRN, Starting on 12/16/15 at 1659, Until Fri12/20/15 at 1141, Pain, Routine Given 12/20/2015 11:33 EST 4 mg Given 12/20/2015 6:11 EST 4 mg Given 12/20/2015 1:31 EST 4 mg HYDROmorphone (DILAUDID) tablet 2-4 mg 2-4 mg, oral, EVERY 3 HOURS PRN, Starting on Fri12/20/15 at 1145, Until Erin 12/21/15 at 0739, Pain, Routine Given 12/21/2015 4:27 EST 4 mg Given 12/21/2015 0:29 EST 4 mg Given 12/20/2015 21:30 EST 4 mg HYDROmorphone (DILAUDID) tablet 2-4 mg 2-4 mg, oral, EVERY 4 HOURS PRN, Starting on Erin 12/21/15 at 0745, Until Erin 12/21/15 at 2022, Pain, Routine Given 12/21/2015 16:15 EST 4 mg Given 12/21/2015 12:45 EST 4 mg Given 12/21/2015 8:35 EST 4 mg HYDROmorphone (DILAUDID) tablet 4 mg 4 mg, oral, PRN, 2 doses, Starting on Fri12/19/15 at 1657, Until Fri12/19/15 at 1916, Pain, Routine, Recovery (only) Given 12/19/2015 18:10 EST 2 mg HYDROmorphone (PF) (DILAUDID) 1 mg/mL injection 0.2-0.4 mg 0.2-0.4 mg, intravenous, EVERY 3 HOURS PRN, Starting on Fri12/15/15 at 2137, Until 12/16/15 at 1651, Pain, Routine Given 12/16/2015 14:23 EDT 0.4 mg Given 12/16/2015 12:03 EDT 0.2 mg HYDROmorphone (PF) (DILAUDID) 1 mg/mL injection 0.2-0.4 mg 0.2-0.4 mg, intravenous, EVERY 3 HOURS PRN, Starting on 12/16/15 at 1659, Until 12/16/15 at 1939, Pain, Routine Given 12/16/2015 17:01 EDT 0.4 mg HYDROmorphone (PF) (DILAUDID) 1 mg/mL injection 0.2-0.6 mg 0.2-0.6 mg, intravenous, EVERY 3 HOURS PRN, Starting on Fri12/16/15 at 1938, Until Fri12/20/15 at 1141, Pain, Routine Given 12/20/2015 4:00 EST 0.6 mg Given 12/19/2015 21:44 EST 0.4 mg Given 12/19/2015 9:13 EST 0.6 mg HYDROmorphone (PF) (DILAUDID) 1 mg/mL injection 0.4 mg 0.4 mg, intravenous, NOW X1, 1 dose, On Fri12/19/15 at 1145, Routine Given 12/19/2015 11:48 EST 0.4 mg ibuprofen (MOTRIN) tablet 400 mg 400 mg, oral, EVERY 6 HOURS PRN, Starting on Fri12/20/15 at 1141, Until Erin 12/21/15 at 2022, Pain, Routine Given 12/21/2015 11:59 EST 400 mg Given 12/20/2015 15:28 EST 400 mg ketOROLAC (TORADOL) injection 15 mg 15 mg, intravenous, EVERY 6 HOURS, 8 doses, First dose on Fri12/18/15 at 1245, Last dose on Fri12/20/15 at 0645, Routine Given 12/20/2015 6:11 EST 15 mg Given 12/19/2015 23:48 EST 15 mg Given 12/19/2015 18:49 EST 15 mg levETIRAcetam (KEPPRA) 500 mg in sodium chloride (NS) 0.9 % 100 mL IVPB 500 mg, intravenous, Administer over 15 Minutes, EVERY 12 HOURS, First dose on Fri12/16/15 at 2100, Until Discontinued, Routine Given 12/20/2015 21:30 EST 5 00 mg Given 12/20/2015 9:52 EST 500 mg Given 12/19/2015 20:08 EST 500 mg levETIRAcetam (KEPPRA) tablet 500 mg 500 mg, oral, 2 TIMES DAILY, First dose on Fri12/15/15 at 2200, Until Discontinued, Routine Given 12/16/2015 8:28 EDT 50 0 mg Given 12/15/2015 22:52 EDT 500 mg levETIRAcetam (KEPPRA) tablet 500 mg 500 mg, oral, 2 TIMES DAILY, First dose on Fri12/21/15 at 0900, Until Discontinued, Routine Given 12/21/2015 8:35 EST 5 00 mg LORazepam (ATIVAN) tablet 0.5 mg 0.5 mg, oral, EVERY 6 HOURS PRN, Starting on Fri12/21/15 at 0739, Until Fri12/21/15 at 2022, Anxiety, Routine LORazepam (ATIVAN) tablet 0.5-1 mg 0.5-1 mg, oral, EVERY 6 HOURS PRN, Starting on Fri12/16/15 at 1651, Until Fri12/21/15 at 0739, Anxiety, Routine Given 12/18/2015 14:49 EST 1 mg metoCLOPramide (REGLAN) injection 10 mg 10 mg, intravenous, EVERY 6 HOURS, 8 doses, First dose on Fri12/19/15 at 1345, Last dose on Fri12/21/15 at 0600, Routine Given 12/21/2015 6:22 EST 10 mg Given 12/21/2015 0:29 EST 10 mg Given 12/20/2015 18:28 EST 10 mg multivitamin (FLINTSTONES) chewable tablet 1 Tab 1 Tablet, oral, DAILY, First dose on Fri12/16/15 at 0900, Until Discontinued, Routine Given 12/21/2015 8:35 EST 1 Tablet Given 12/20/2015 9:52 EST 1 Tablet Given 12/19/2015 9:09 EST 1 Tablet ondansetron (PF) (ZOFRAN) 4 mg/2 mL injection 1 dose, Starting on Fri12/15/15 at 1742, Until Fri12/15/15 at 1745 ondansetron (PF) (ZOFRAN) injection 4 mg 4 mg, intravenous, NOW X1, 1 dose, On Fri12/15/15 at 1745, STAT Given 12/15/2015 17:45 EDT 4 mg ondansetron (PF) (ZOFRAN) injection 4 mg 4 mg, intravenous, EVERY 4 HOURS PRN, Starting on Fri12/15/15 at 2137, Until Fri12/21/15 at 0739, Nausea, Vomiting, Routine Given 12/18/2015 19:50 EST 4 mg Given 12/18/2015 8:59 EST 4 mg Given 12/18/2015 4:31 EST 4 mg ondansetron (ZOFRAN-ODT) disintegrating tablet 4 mg 4 mg, oral, EVERY 4 HOURS PRN, Starting on Fri12/21/15 at 0738, Until Fri12/21/15 at 2021, Nausea, Routine PEG 3350-Electrolytes (MIRALAX) packet 17 g 17 g, oral, DAILY, First dose on Fri12/18/15 at 0900, Until Discontinued, Routine Given 12/21/2015 8:34 EST 17 g Given 12/20/2015 9:52 EST 17 g Given 12/19/2015 9:09 EST 17 g prochlorperazine (COMPAZINE) tablet 5 mg 5 mg, oral, EVERY 6 HOURS PRN, Starting on Fri12/21/15 at 0738, Until Fri12/21/15 at 2021, Nausea, Routine promethazine (PHENERGAN) tablet 12.5 mg 12.5 mg, oral, EVERY 6 HOURS PRN, Starting on Fri12/21/15 at 0738, Until Fri12/21/15 at 2021, Nausea, Routine scopolamine (TRANSDERM-SCOP) 1.5 mg (1 mg over 3 days) patch 1 Patch 1 Patch, transdermal, Administer over 72 Hours, EVERY 72 HOURS, First dose on Fri12/18/15 at 0900, Until Discontinued, Routine Patch Applied 12/21/2015 8:44 EST 1 Patch Behind Left Ear Patch Applied 12/18/2015 8:40 EST 1 Patch Be hind Left Ear senna (SENOKOT) tablet 1 Tab 1 Tablet, oral, AT BEDTIME, First dose on 12/18/15 at 2100, Until Discontinued, Routine Given 12/20/2015 21:2 9 EST 1 Tablet Given 12/19/2015 20:17 EST 1 Tablet Given 12/18/2015 20:05 EST 1 Tablet senna (SENOKOT) tablet 2 Tab 2 Tablet, oral, 2 TIMES DAILY, First dose (after last modification) on Erin 12/21/15 at 0900, Until Discontinued, Routine Given 12/21/2015 8:35 EST 2 Tablets sodium chloride 0.9 % (NS) infusion at 110 mL/hr, intravenous, CONTINUOUS, Starting on Fri12/15/15 at 2200, Until Fri12/21/15 at 0440, Routine New Bag 12/20/2015 13:13 EST 110 mL/ hr New Bag 12/20/2015 4:03 EST 110 mL/hr Rate Documented 12/20/2015 0:00 EST 110 mL/hr thiamine (VITAMIN B1) tablet 100 mg 100 mg, oral, DAILY, 3 doses, First dose on 12/16/15 at 0900, Last dose on 12/18/15 at 0900, Routine Given 12/18/2015 8:39 EST 100 mg Given 12/17/2015 9:08 EST 100 mg Given 12/16/2015 8:28 EDT 100 mg documented in this encounter Active and Recently Administered Medications Times are shown in EST. Scheduled Medication Order 12/19/2015 12/20/2015 12/21/2015 acetaminophen (TYLENOL) tablet 1,000 mg 1,000 mg, oral, EVERY 6 HOURS, First dose on 12/17/15 at 1200, Until Discontinued, Routine 0558 (Given - Provider: Katy Alicea RN)1138 (Given - Provider: Lashon Couch)1808 (Given - Provider: Jane Bro RN)2348 (Given - Provider: Ruth Xie RN) 0611 (Given - Provider: Ruth Xie, ALEXANDER)1133 (Given - Provider: Sobeida Chin, ALEXANDER)1822 (Given - Provider: Sobeida Chin RN) 0029 (Given - Provider: Isabela Hall RN)0622 (Given - Provider: Isabela Hall RN)1159 (Given - Provider: Sobeida Chin RN)1756 (Not Given - Provider: Maggy Smith RN - Reason: Patient off unit - Comment: PT has been discharged) ceFAZolin (ANCEF) syringe 2 g (COMPLETED) 2 g, intravenous, Administer over 10 Minutes, PRE-OP ONCE, 1 dose, On Fri12/19/15 at 1200, Routine 1541 (Given by Other - Provider: Carlos Salguero RN - Comment: Carlos Dias) docusate sodium (COLACE) capsule 100 mg (CANCELED) 100 mg, oral, 2 TIMES DAILY, First dose on Fri12/15/15 at 2200, Until Discontinued, Routine 09 (Given - Provider: Lashon Couch)2016 (Given - Provider: Randall Orourke RN) 951 (Given - Provider: Sobeida Chin RN)2128 (Given - Provider: Isabela Hall RN) docusate sodium (COLACE) capsule 200 mg(Linked Group 1) 200 mg, oral, 2 TIMES DAILY, First dose (after last modification) on Fri12/21/15 at 0900, Until Discontinued, Routine 0835 (Given - Provider: Kin Woodson) enoxaparin (LOVENOX) injection 40 mg 40 mg, subcutaneous, AT BEDTIME, First dose (after last modification) on Fri12/20/15 at 2100, Until Discontinued, Routine 213 (Given - Provider: Isabela Hall RN) famotidine (PEPCID) tablet 20 mg (CANCELED)(Linked Group 2) 20 mg, oral, 2 TIMES DAILY, First dose on Fri12/15/15 at 2200, Until Discontinued, Routine 09 (Given - Provider: Lashon Couch)2016 (Given - Provider: Randall Orourke RN) 951 (Given - Provider: Sobeida Chin RN)2129 (Given - Provider: Isabela Hall RN) HYDROmorphone (PF) (DILAUDID) 1 mg/mL injection 0.4 mg (COMPLETED) 0.4 mg, intravenous, NOW X1, 1 dose, On Fri12/19/15 at 1145, Routine 1148 (Given - Provider: Lashon Couch) ketOROLAC (TORADOL) injection 15 mg (COMPLETED) 15 mg, intravenous, EVERY 6 HOURS, 8 doses, First dose on Fri12/18/15 at 1245, Last dose on Fri12/20/15 at 0645, Routine 0558 (Given - Provider: Katy Alicea RN)1331 (Given - Provider: Lashon Couch)1849 (Given - Provider: Jane Bro RN)2348 (Given - Provider: Ruth Xie RN) 0611 (Given - Provider: Ruth Xie RN) levETIRAcetam (KEPPRA) 500 mg in sodium chloride (NS) 0.9 % 100 mL IVPB (CANCELED) 500 mg, intravenous, Administer over 15 Minutes, EVERY 12 HOURS, First dose on Fri12/16/15 at 2100, Until Discontinued, Routine 0910 (Given - Provider: Lashon Couch)2007 (Given - Provider: Randall Orourke, ALEXANDER) 0952 (Given - Provider: Sobeida Chin, ALEXANDER)2130 (Given - Provider: Isabela Hall, ALEXANDER) levETIRAcetam (KEPPRA) tablet 500 mg 500 mg, oral, 2 TIMES DAILY, First dose on Fri12/21/15 at 0900, Until Discontinued, Routine 0835 (Given - Provider: Kin Woodson) metoCLOPramide (REGLAN) injection 10 mg (CANCELED) 10 mg, intravenous, EVERY 6 HOURS, 8 doses, First dose on Fri12/19/15 at 1345, Last dose on Fri12/21/15 at 0600, Routine 1404 (Given - Provider: Lashon Couch)1924 (Not Given - Provider: Randall Orourke RN - Reason: Patient off unit)2348 (Given - Provider: Ruth Xie RN) 0611 (Given - Provider: Ruth Xie RN)1133 (Given - Provider: Sobeida Chin, ALEXANDER)1828 (Given - Provider: Sobeida Chin, ALEXANDER) 0029 (Given - Provider: Isabela Hall, ALEXANDER)0622 (Given - Provider: Isabela Hall RN) multivitamin (FLINTSTONES) chewable tablet 1 Tab(Linked Group 3) 1 Tablet, oral, DAILY, First dose on 12/16/15 at 0900, Until Discontinued, Routine 0909 (Given - Provider: Lashon Couch) 0952 (Given - Provider: Sobeida Chin, ALEXANDER) 0835 (Given - Provider: Kin Woodson) PEG 3350-Electrolytes (MIRALAX) packet 17 g 17 g, oral, DAILY, First dose on 12/18/15 at 0900, Until Discontinued, Routine 09 (Given - Provider: Lashon Couch) 0952 (Given - Provider: Sobeida Chin, ALEXANDER) 0834 (Given - Provider: Kin Woodson) scopolamine (TRANSDERM-SCOP) 1.5 mg (1 mg over 3 days) patch 1 Patch 1 Patch, transdermal, Administer over 72 Hours, EVERY 72 HOURS, First dose on Fri12/18/15 at 0900, Until Discontinued, Routine 0835 (Patch Removed - Provider: Kin Woodson)0844 (Patch Applied - Provider: Kin Woodson) senna (SENOKOT) tablet 1 Tab (CANCELED) 1 Tablet, oral, AT BEDTIME, First dose on Fri12/18/15 at 2100, Until Discontinued, Routine 2016 (Given - Provider: Randall Orourke, ALEXANDER) 212 (Given - Provider: Isabela Hall, ALEXANDER) senna (SENOKOT) tablet 2 Tab 2 Tablet, oral, 2 TIMES DAILY, First dose (after last modification) on Erin 12/21/15 at 0900, Until Discontinued, Routine 0835 (Given - Provider: Kin Woodson) Continuous Medication Order 12/19/2015 12/20/2015 12/21/2015 sodium chloride 0.9 % (NS) infusion (CANCELED) at 110 mL/hr, intravenous, CONTINUOUS, Starting on Fri12/15/15 at 2200, Until Erin 12/21/15 at 0440, Routine 1502 (Rate Documented - Provider: Bruna Banks RN) 0000 (Rate Documented - Provider: Ruth Xie, ALEXANDER)0403 (New Bag - Provider: Meng Connors, RN)1313 (New Bag - Provider: Sobeida Chin, ALEXANDER)1829 (Completed - Provider: Sobeida Chin, ALEXANDER) PRN Medication Order 12/19/2015 12/20/2015 12/21/2015 fentaNYL citrate (PF) 50 mcg/mL injection 25-100 mcg (CANCELED) 25-100 mcg, intravenous, EVERY 5 MIN PRN, Starting on Fri12/19/15 at 1657, Until Fri12/19/15 at 1916, Pain, Routine, Recovery (only) 1810 (Given - Provider: Jane Bro RN) HYDROmorphone (DILAUDID) tablet 2-4 mg (CANCELED) 2-4 mg, oral, EVERY 4 HOURS PRN, Starting on 12/16/15 at 1659, Until Fri12/20/15 at 1141, Pain, Routine 0219 (Given - Provider: Katy Alicea RN)0603 (Given - Provider: Katy Alicea RN)1008 (Given - Provider: Lashon Couch)2017 (Given - Provider: Randall Orourke RN) 0131 (Given - Provider: Ruth Xie RN)0611 (Given - Provider: Ruth Xie RN)1133 (Given - Provider: Sobeida Chin RN) HYDROmorphone (DILAUDID) tablet 2-4 mg (CANCELED) 2-4 mg, oral, EVERY 3 HOURS PRN, Starting on Fri12/20/15 at 1145, Until Fri12/21/15 at 0739, Pain, Routine 1528 (Given - Provider: Sobeida Chin RN)1822 (Given - Provider: Sobeida Chin RN)2130 (Given - Provider: Isabela Hall RN) 0029 (Given - Provider: Isabela Hall RN)0427 (Given - Provider: Isabela aHll RN) HYDROmorphone (DILAUDID) tablet 2-4 mg 2-4 mg, oral, EVERY 4 HOURS PRN, Starting on Fri12/21/15 at 0745, Until Fri12/21/15 at 2022, Pain, Routine 0835 (Given - Provider: Kin Woodson)1245 (Given - Provider: Sobeida Chin RN)1615 (Given - Provider: Maggy Smith RN) HYDROmorphone (DILAUDID) tablet 4 mg (CANCELED) 4 mg, oral, PRN, 2 doses, Starting on Fri12/19/15 at 1657, Until Fri12/19/15 at 1916, Pain, Routine, Recovery (only) 1810 (Given - Provider: Jane Bro RN) HYDROmorphone (PF) (DILAUDID) 1 mg/mL injection 0.2-0.6 mg (CANCELED) 0.2-0.6 mg, intravenous, EVERY 3 HOURS PRN, Starting on Fri12/16/15 at 1938, Until Fri12/20/15 at 1141, Pain, Routine 0218 (Given - Provider: Katy Alicea, RN)0913 (Given - Provider: Lashon Couch)2144 (Given - Provider: Randall Orourke, ALEXANDER) 0400 (Given - Provider: Meng Connors, ALEXANDER) ibuprofen (MOTRIN) tablet 400 mg 400 mg, oral, EVERY 6 HOURS PRN, Starting on Fri12/20/15 at 1141, Until Fri12/21/15 at 2021, Pain, Routine 1528 (Given - Provider: Sobeida Chin, ALEXANDER) 1159 (Given - Provider: Sobeida Chin, ALEXANDER) LORazepam (ATIVAN) tablet 0.5 mg 0.5 mg, oral, EVERY 6 HOURS PRN, Starting on Fri12/21/15 at 0739, Until Fri12/21/15 at 2021, Anxiety, Routine ondansetron (ZOFRAN-ODT) disintegrating tablet 4 mg 4 mg, oral, EVERY 4 HOURS PRN, Starting on Fri12/21/15 at 0738, Until Fri12/21/15 at 2021, Nausea, Routine prochlorperazine (COMPAZINE) tablet 5 mg 5 mg, oral, EVERY 6 HOURS PRN, Starting on Fri12/21/15 at 0738, Until Fri12/21/15 at 2021, Nausea, Routine promethazine (PHENERGAN) tablet 12.5 mg 12.5 mg, oral, EVERY 6 HOURS PRN, Starting on Fri12/21/15 at 0738, Until Fri12/21/15 at 2021, Nausea, Routine Linked Groups Order Group 1: docusate sodium (COLACE) capsule 200 mgJump to med 200 mg, oral, 2 TIMES DAILY, First dose (after last modification) on Erin 12/21/15 at 0900, Until Discontinued, Routine Group 2: famotidine (PEPCID) 20 mg/2 mL injection 20 mg (CANCELED) 20 mg, intravenous, 2 TIMES DAILY, First dose on Fri12/15/15 at 2200, Until Discontinued, Routine Or famotidine (PEPCID) tablet 20 mg (CANCELED)Jump to med 20 mg, oral, 2 TIMES DAILY, First dose on Fri12/15/15 at 2200, Until Discontinued, Routine Or famotidine (PEPCID) tablet 20 mg (CANCELED) 20 mg, per ng tube, 2 TIMES DAILY, First dose on Fri12/15/15 at 2200, Until Discontinued, Routine Group 3: Multivitamins with minerals + ferrous gluconate oral solution 15 mL (CANCELED) 15 mL, oral, DAILY, First dose on 12/16/15 at 0900, Until Discontinued, Routine Or multivitamin (FLINTSTONES) chewable tablet 1 TabJump to med 1 Tablet, oral, DAILY, First dose on 12/16/15 at 0900, Until Discontinued, Routine Or multi-vitamin (MVI) IV solution (CANCELED) 10 mL, intravenous, DAILY, First dose on 12/16/15 at 0900, Until Discontinued, Routine documented in this encounter Orders Medications Ordered That Andrei ht Not Have Been Administered Count Last Ordered Date First Ordered Date LORazepam (ATIVAN) tablet 0.5 mg 1 12/21/19 16 ondansetron (ZOFRAN-ODT) dis integrating tablet 4 mg 1 12/21/2015 prochlorperazine (COMPAZINE) tablet 5 mg 1 12/21/2015 promethazine (PHENERGAN) tablet 12.5 mg 1 1 02/19/2015 HYDROmorphone (PF) (DILAUDID ) 1 mg/mL injection 0.2-0.4 mg 2 12/20/2015 12/16/2015 atropine 0.1 mg/mL syringe 0.5 mg 1 016 diphenhydrAMINE (BENADRYL) i njection 6.25 mg 1 12/19/2015 HYDROmorphone (PF) (DILAUDID ) 1 mg/mL injection 0.2-1 mg 1 12/19/2015 lactated ringers (LR) infusion 1 12/19/2015 naloxone (NARCAN) injection 0.2 mg 1 2015 ondansetron (PF) (ZOFRAN) injection 2 mg 1 12/19/2015 prochlorperazine edisylate ( COMPAZINE) injection 10 mg 1 12/18/2015 HYDROmorphone (PF) (DILAUDID ) 1 mg/mL injection 1 12/16/2015 influenza vaccine 2016-17 (3 yr+) (PF) (FLUZONE) IM injection-syringe 0.5 mL 1 12/16/2015 acetaminophen (TYLENOL) suppository 650 mg 1 12/15/2015 docusate (COLACE) liquid 100 mg 1 6 famotidine (PEPCID) 20 mg/2 mL injection 20 mg 1 12/15/2015 famotidine (PEPCID) tablet 20 mg 1 12/15/19 16 fentaNYL citrate (PF) 50 mcg/mL injection 1 12/15/2015 fentaNYL citrate (PF) 50 mcg /mL injection 25-100 mcg 1 12/15/2015 folic acid 1 mg in sodium ch loride (NS) 0.9 % 50 mL IVPB 1 12/15/2015 LORazepam (ATIVAN) tablet 0.5-1 mg 1 2015 multi-vitamin (MVI) IV solution 1 6 Multivitamins with minerals + ferrous gluconate oral solution 15 mL 1 12/15/2015 thiamine (VITAMIN B-1) 100 m g in sodium chloride (NS) 0.9 % 50 mL IVPB 1 12/15/2015 thiamine (VITAMIN B-1) injection 100 mg 1 1 02/13/2015 Diet Count Last Ordered Date First Orde red Date DISCHARGE DIET 1 12/21/2015 Nursing Count Last Ordered Date First Orde red Date ACTIVITY INSTRUCTIONS 2 12/21/2015 BATHING INSTRUCTIONS 1 12/21/2015 WOUND CARE INSTRUCTIONS 1 12/21/2015 VITAL SIGNS 1 12/16/2015 CONTRAINDICATION TO ANTICOAG ULATION THERAPY 1 12/15/2015 Respiratory Care Count Last Ordered Date First Ordered Date RESPIRATORY CARE EVALUATION ONLY 1 12/16/19 16 Admission Count Last Ordered Date First Orde red Date ED BED REQUEST 1 12/15/2015 STATUS: INPATIENT ACUTE ADMISSION 1 016 Transfer Count Last Ordered Date First Orde red Date NOTIFY PPS OF DISCHARGE COMPLETE 1 12/21/19 16 NOTIFY PPS OF ROOM CHANGE COMPLETE 1 2015 NOTIFY PPS PATIENT ARRIVAL IN PACU 1 2015 NOTIFY PPS PATIENT TRANSFERRED OUT OF PACU 1 12/19/2015 PPS NOTIFICATION OF PATIENT ARRIVAL ON UNIT 3 12/19/2015 12/15/2015 PPS NOTIFICATION OF SENDING PATIENT OFF THE UNIT 1 12/19/2015 TRANSFER PATIENT 1 12/16/2015 UR PATIENT STATUS CHANGE 1 12/15/2015 Discharge Count Last Ordered Date First Orde red Date DISCHARGE PATIENT 1 12/21/2015 Legal Count Last Ordered Date First Orde red Date MISCELLANEOUS DISCHARGE INSTRUCTIONS 10 12/11 documented in this encounter Care Teams Stretcher Helper Relationship Specialty Start Date End Date Jose Ramon Prado MD PCP - General 12/15/15 documented as of this encounter
--- OUTSIDE RECORDS SUMMARY | 2023-12-20 14:49 | XMS_ITS | Encounter Summary ---
Author Organization [facility] Address [address] [place] [address] Care Team Providers Care Drill Press Operator Name Role Phone Jose Ramon Prado MD Primary Care Provider Amelia loving Encounter Details Date Type Department Care Team (Late st Contact Info) Description 12/19/2015 Results Only Imaging [facility] Hand & Upper Extremity Program - [address] [address] Chip Hanna MD [address] [place] [address] Social History Tobacco Use Types Packs/Day Years [...] Procedure Name Priority Date/Time Associated Diagnosis Comments PORT FLUORO UP TO 1 HOUR 12/19/2015 17:21 EST documented in this encounter Results * PORT FLUORO UP TO 1 HOUR (12/19/2015 17:21 EST) Anatomical Region Laterality Modality Other 12/19/2015 17:2 1 EST Narrative 12/19/2015 17:21 EST Non Reportable Exam Procedure Note FRAME OPERATOR, IMAGING - 12/19/2015 Non Reportable Exam Chip Hanna MD IMG FLUOROSCOPY MARGIE BENITO documented in this encounter Visit Diagnoses Not on filedocumented in this encounter Care Teams Drill Press Operator Relationship Specialty Start Date End Date Jose Ramon Prado MD PCP - General 12/15/15 documented as of this encounter
--- NOTE | 2023-12-20 14:54 | ED.GENADUL_ITS ---
Discharge Plan Disposition Patient Disposition: Home Condition: Stable Discharge Details Chief Complaint: Trauma Clinical Impression: Crushing injury of abdomen, lower back, and pelvis, initial encounter Primary Care Provider: Unknown,Unknown ED Provider: Ludmila Ramirez Home Meds and New Rx's Prescriptions: No Action No Known Home Meds Discharge Instructions Instructions: Crush Injury, Blunt Abdominal Trauma ED Additional Instructions: At this time x-rays are within normal limits. I do suspect that you will be sore for the next couple of days. Please alternate ice and heat. Please take Tylenol or Ibuprofen with food every 4-6 hours as needed for pain and swelling. Follow up with primary care provider in 3-5 days. Return to ED sooner if any worsening pain, vomiting, blood in your stool or vomit, chest pain, shortness of breath, dizziness or concerns. Stand Alone Forms: Work Release Referrals: Primary Care Provider [Outside] - 5 days HPI General Mode of arrival: ambulatory . Date/Time Provider Initiated Documentation: 12/20/23 14:48 . Limitations to Documentation: no limitations . Information obtained by: patient, RN notes reviewed and old records reviewed . HPI Narrative: 28-year-old male presents status post a logging injury. Patient was cutting down a tree with a chainsaw when the tree kicked back he jumped out of the way however the tree stump hit him on his lower back and landed on his boot. He has abrasions and ecchymosis noted to his left flank and left hip area. He was ambulatory here in the department with a stiff gait. He denies any abdominal pain denies hitting his head or loss of consciousness. He did take 3 ibuprofen prior to arrival. Denies any chest pain or other associated symptoms. Related Data Home Medications ?Medication ?Instructions ?Recorded ?Confirmed Unknown [No Known Home Meds] 04/25/15 12/20/23 Allergies Allergy/AdvReac Type Severity Reaction Status Date / Time No Known Allergies Allergy Unverified 06/23/23 16:06 General Stated Complaint: Trauma MCKENZIE: 3 Review of Systems Musculoskeletal Musculoskeletal: Reports as per HPI and Reports back pain Exam Narrative Exam Narrative: General: Well Developed, Awake and Alert, conversant. Skin: Warm and Dry HEENT: Head: No palpable deformities, Normocephalic Eyes: Pupils PERRLA, EOM's intact. No periorbital eccymosis or step off Ears: Canal patent. Tympanic membranes are clear . No powers's sign, no hemptympanum. Nose/Face: Atraumatic. Facial bones nontender to palpation and stable with manipulation. Mouth/Throat: No intraoral trauma. Teeth and mandible are intact. Neck: No midline tenderness, no step off, no deformity to palpation of C-spine. Trachea midline. Chest: No surface trauma. Nontender without crepitus or deformity. Lungs clear to ausculatation bilaterally. Heart: RRR, no rubs, murmurs or gallop. Abdomen: No abrasions, ecchymosis, or surface trauma. Nondistended. Nontender to palpation no guarding, rebound, or rigidity. Pelvis: Nontender to palpation and stable to compression. Femoral pulses strong and equal. Abrasions and ecchymosis noted to his left flank and pelvis. Extremities: no surface trauma. Sensation intact. Peripheral pulses intact and equal. Neuro: ANO x4, GCS 15, cranial nerves II through XII intact. Motor and sensory exam nonfocal. Reflexes are symmetric. Course Vital Signs Vital signs: Vital Signs Temperature 36.4 C 12/20/23 14:44 Pulse 96 H 12/20/23 14:44 Respiratory Rate 20 12/20/23 14:44 Blood Pressure 152/76 H 12/20/23 14:44 Pulse Oximetry 98 12/20/23 14:44 Temperature 36.4 C 12/20/23 14:44 Pulse 96 H 12/20/23 14:44 Respiratory Rate 20 12/20/23 14:44 Respiratory Effort Normal, Non-Labored 12/20/23 14:50 Blood Pressure 152/76 H 12/20/23 14:44 Blood Pressure Position Supine 12/20/23 14:44 Pulse Oximetry 98 12/20/23 14:44 Oxygen Delivery Method Room Air 12/20/23 14:44 Oxygen Flow Rate 0 12/20/23 14:44 Medical Decision Making 28-year-old male presents status post a logging injury. Patient was cutting down a tree with a chainsaw when the tree kicked back he jumped out of the way however the tree stump hit him on his lower back and landed on his boot. He has abrasions and ecchymosis noted to his left flank and left hip area. He was ambulatory here in the department with a stiff gait. He denies any abdominal pain denies hitting his head or loss of consciousness. He did take 3 ibuprofen prior to arrival. Denies any chest pain or other associated symptoms. X-ray of pelvis and hip ordered and L-spine x-ray. Will continue to observe. Vitals are reassuring no abdominal pain no chest pain. Urinalysis added on. Care is to be handed off to oncoming provider Sasha SALESPERSON [employer] pending UA and x-ray results. Quality:[facility] Health Related Social Needs: No Data to Display [facility] All Active Problems (Updated 12/20/23 @ 15:30 by Ludmila Ramirez NP) Crushing injury of abdomen, lower back, and pelvis, initial encounter (Acute) Medical History (Updated 12/20/23 @ 15:30 by Ludmila Ramirez NP) Pulmonary embolism Angina pectoris Anxiety Surgical History History of coronary artery stent placement Social History Smoking/Tobacco Use Status: Current every day Tobacco Type: cigarettes Smoking risk assessment performed?: Yes Alcohol Intake: current Alcohol Intake frequency: a few times a month Drug use: Never Substance use type: does not use Housing: house Do you feel safe at home: Yes Do you feel safe in your relationship?: Yes Sign Out Sign Out Data: Sign Out Comment: 28 year old ambulatory here, hit by a tree after cutting it down, had L-spine and hip X-rays, Pending UA. Expected Dispo DC. Last updated by Ludmila Ramirez NP at 12/20/23 15:26
--- NOTE | 2023-12-20 16:30 | ED.FU.B_ITS ---
Follow Up Plan: Handoff report received from yvette Krishna TEACHER LEARNING DISABLED. Please see her note for full HPI, ROS, and physical exam. I did independently interview and performed physical exam on Silviano. He reports that he was hit by a tree that kicked back while logging, hitting him on the left side. He denies abdominal pain, nausea/vomiting, saddle anesthesia/paresthesias, leg weakness, change in gait, bowel/bladder dysfunction. Physical exam very reassuring, 5 out of 5 muscle strength to lower extremities, sensation grossly intact. Abrasions noted to the left side. No CVA tenderness. No abdominal tenderness with palpation or ecchymosis noted to the or abdomen. Workup was significant for moderately displaced fractures involving the L2, L3, and L4 left transverse processes. UA was unremarkable, no blood in urine. No intervention required for fractures, advised patient on symptomatic management and red flags indicating need for return to emergency care. Lidocaine patch given for discomfort. Patient is agreeable with plan of care.
[2023-12-20 16:42] LABS: Bilirubin Negative (Negative); Blood Negative (Negative); Clarity Clear (Clear); Glucose Negative (Negative); Ketones 15 mg/dL (Negative); Leukocyte Esterase Trace (Negative); Nitrite Negative (Negative); Specific Gravity 1.025 (1.005-1.025); Urobilinogen 0.2 mg/dL (Up to 0.2); pH 5.5 (5-8)
[2023-12-20 16:50] LABS: Bacteria Negative HPF (Negative); C & S Indicated? No; Crystals Negative HPF (Negative); Epithelial Cells Rare HPF (Negative); Mucus Heavy (Negative); RBC 0-2 HPF (0-2)
[2023-12-20] MEDS: Lidocaine 5% Patch 1 PATCH TP (17:09)
== END 2023-12-20 17:10 | disposition home or self-care (01) ==
PROVIDERS: Registered Nurse Emergency; Emergency Provider Nurse Practitioner Family
DX: S32.028A Other fracture of second lumbar vertebra, initial encounter for closed fracture (principal); S32.038A Other fracture of third lumbar vertebra, initial encounter for closed fracture; S32.048A Other fracture of fourth lumbar vertebra, initial encounter for closed fracture; I25.10 Atherosclerotic heart disease of native coronary artery without angina pectoris; F17.210 Nicotine dependence, cigarettes, uncomplicated; Z95.5 Presence of coronary angioplasty implant and graft; W20.8XXA Other cause of strike by thrown, projected or falling object, initial encounter; Y93.H3 Activity, building and construction; Y92.017 Garden or yard in single-family (private) house as the place of occurrence of the external cause
CPT/HCPCS: 99283; 72110; 73502; 81003; 81015

== ENCOUNTER 2024-05-20 07:23 | Outpatient (CLI) | payer BC, SELFPAY ==
[2024-05-20 07:23] LABS: Abs Immature Grans 0.05 10^3/uL (0.0-0.06); Absolute Basophil Count 0.05 10^3/uL (0.0-0.2); Absolute Eosinophil Count 0.09 10^3/uL (0.0-0.7); Absolute Lymphocyte Count 2.02 10^3/uL (1.2-3.4); Absolute Neutrophil Count 3.56 10^3/uL (1.2-6.7); Basophils % 0.8 %; Eosinophils % 1.4 %; HCT 47.3 % (40.0-50.0); Immature Grans % 0.8 %; Lymphocytes % 32.2 %; MCH 30.1 pg (27.0-33.0); MCHC 33.8 % (32.0-36.0); MCV 89 fL (80-95); MPV 8.9 fL (8.0-11.0); Neutrophils % 56.8 %; Platelet Count 217 10^3/uL (130-400); RBC 5.32 10^6/uL (4.36-5.78); RDW 12.7 % (11.8-14.1); RDW-SD 41.5 fL; WBC 6.27 10^3/uL (4.4-10.8)
[2024-05-20 07:43] LABS: Hemoglobin A1C 5.3 % (<5.7)
[2024-05-20 08:08] LABS: ALT 65 U/L (16-63); Albumin 4.2 g/dL (3.4-5.0); Alkaline Phosphatase 93 U/L (46-116); Anion Gap 9.5 mmol/L (3-11); BUN 16 mg/dL (7-18); Bilirubin, Total 0.5 mg/dL (0.2-1.0); CO2 28.5 mmol/L (21.0-32.0); CREATININE 1.1 mg/dL (0.70-1.30); Calcium 9.6 mg/dL (8.5-10.1); Calculated LDL 113 mg/dL (<100); Chloride 106 mmol/L (98-107); Cholesterol 182 mg/dL (<200); Estimated GFR 92.61 (mL/min/1.73m2); Glucose 100 mg/dL (74-106); HDL Cholesterol 51 mg/dL (>or=40); Potassium 4.4 mmol/L (3.5-5.1); Sodium 144 mmol/L (136-145); TSH 2.29 uIU/mL (0.36-3.74); Total Protein 7.8 g/dL (6.4-8.2); Triglyceride 93 mg/dL (<150); Vitamin D 25 Total 16 ng/mL (30-100)
[2024-05-20 08:32] LABS: AST 24 U/L (15-37)
== END 2024-05-20 07:24 | disposition home or self-care (01) ==
LOC: LBO 07:24
PROVIDERS: Visit Provider Naturopath
DX: Z00.00 Encounter for general adult medical examination without abnormal findings (principal)
CPT/HCPCS: 36415; 80053; 80061; 82306; 83036; 84443; 85025